=== PATIENT | female | born 1995 | race Caucasian/White ===

== ENCOUNTER → 2020-02-20 13:51 | Outpatient (BNVA) | payer MEDICARE, MEDICAID, SELFPAY | PROVIDERS: Visit Provider Emergency Medicine | DX: J02.9 Acute pharyngitis, unspecified (principal); Z68.33 Body mass index [BMI] 33.0-33.9, adult; Z71.89 Other specified counseling | CPT/HCPCS: 87071; 87880 ==

== ENCOUNTER → 2020-02-25 14:11 | Outpatient (BNVA) | payer MEDICARE, SELFPAY | PROVIDERS: Visit Provider Nurse Practitioner Family | DX: Z20.828 Contact with and (suspected) exposure to other viral communicable diseases (principal); J06.9 Acute upper respiratory infection, unspecified | CPT/HCPCS: 87635 ==

== ENCOUNTER 2020-09-08 14:23 | Emergency (ER) | payer MEDICARE, MEDICAID, SELFPAY ==
[2020-09-08 14:57] VITALS: BP 123/77; PULSE 115; RESP 18; TEMP 36.7; O2SAT 96; BMI 34.0
--- NOTE | 2020-09-08 16:42 | CTR_ITS ---
PROCEDURE INFORMATION: Exam: CT Head Without Contrast Exam date and time: 09/08/2020 4:42 PM Age: 24 years old Clinical indication: Condition or disease; Convulsions or seizures; Additional info: Seizure, trauma, left side tingling. HX. Of seizures as a child. Yesterday wave of electricity went through her and unable to move. Today feels drained, left sided tingle. Tamez/dizzy/blurred vision TECHNIQUE: Imaging protocol: Computed tomography of the head without contrast. Radiation optimization: All CT scans at this facility use at least one of these dose optimization techniques: automated exposure control; mA and/or kV adjustment per patient size (includes targeted exams where dose is matched to clinical indication); or iterative reconstruction. COMPARISON: No relevant prior studies available. RADIATION DOSE METRICS: Total DLP (mGy-cm): 880.43 FINDINGS: Brain: Normal. No hemorrhage. Unremarkable white matter. No mass effect. Cerebral ventricles: No ventriculomegaly. Paranasal sinuses: Visualized sinuses are unremarkable. No fluid levels. Mastoid air cells: Visualized mastoid air cells are well aerated. Bones/joints: Unremarkable. No acute fracture. Soft tissues: Unremarkable. CT/CT head wo con* [id number] IMPRESSION: No acute intracranial abnormality. Radiation Dose CTDIVOL = (mGy): DLP = 880.43 (mGy-cm)
--- NOTE | 2020-09-08 16:49 | W.ED.GENADLT ---
HPI - General Adult General: Chief complaint: General Medical Stated complaint: LEFT SIDE NUMB Time Seen by Provider: 09/08/20 16:37 History of Present Illness: HPI narrative: Patient is complaining of possible focal seizure last night and residual numbness/tingling today and called PCP told to come to ER patient says she has not had a seizure in about 6 years this is like her usual presentation she can feel it coming on she usually just lays down on the ground and she feels like the lights are on but nobody is home she remains awake and alert this was unwitnessed. She has never had 1 of these episodes while she was driving. She does not usually feel tired afterwards and a little bit of a headache but she has numbness and tingling and like an electrical shock wave that starts from her head down her body and it is bilateral but the left side seems a little bit worse. She denies any loss of function of bowel or bladder denies biting her tongue she denies any loss of use of her arms or legs. She is diabetic she checked her blood sugar last night and it was 200 which is a good number for her. She denies any recent illness denies vision changes. She feels her symptoms are improving but her primary wanted her to be checked out Review of Systems Narrative: General: denies fatigue, fever or chills HEENT: denies ear pain, denies nasal congestion, denies vision changes, denies sore throat Neck: denies masses or pain Resp: denies cough, denies shortness of breath, denies pleuritic pain Cardio: denies chest pain, denies edema GI: denies abdominal pain, denies N/V/D, denies black/tarry or bloody stools : denies hematuria, denies dysuria Neuro: denies headache, denies dizziness, denies motor changes but see HPI she feels like an electrical shock wave down her head Musculoskeletal: denies pain, denies swelling Skin: denies rashes Psych: denies SI or HI Endocrine: denies thyroid symptoms, denies lymphadenopathy all over ROS reviewed and patient denies PFSH ED PFSH: Social History Smoking and tobacco status: never smoked Second hand smoke exposure: No Smoking risk assessment/counseling performed?: No Alcohol intake: never Desire information about alcohol rehabilitation?: No Counseling given: No Desire information about substance/drug rehabilitation?: No Counseling given: No Adopted: No Caregiver/support person: No Lives independently: Yes Female Reproductive History: Date of last menstrual period: 08/08/20 Physical Exam Narrative: EXAM NARRATIVE: General: a/o/3, no distress, normal speech sitting upright very talkative Head: atraumatic HEENT: normal eyes, normal conjunctiva, normal hearing, normal external nose, normal mouth, mucous membranes moist Neck: FROM, trachea midline Chest: normal expansion, no gross deformities Resp: normal speech, no retractions, no accessory muscle use, CTA bilaterally Cardio: regular rate and rhythm and no murmur, no peripheral edema, normal peripheral pulses GI: soft, flat non tender, no guarding normal BS : deferred Musculoskeletal: FROM, no pain or gross deformities Neuro: a/o appropriate for age, no gross motor or sensory deficits, CN II-XII grossly intact, normal coordination, normal speech. Very polite normal functions full range of motion of all of her extremities no specific weakness Skin: no rashes Psych: cooperative, normal mood and effect Course Vital Signs: Vital signs: Vital Signs Temperature 98.1 F 09/08/20 14:57 Pulse Rate 114 H 09/08/20 16:50 Respiratory Rate 18 09/08/20 14:57 Blood Pressure 123/102 09/08/20 16:50 Pulse Oximetry 95 09/08/20 16:50 MDM - General Adult MDM Narrative: Medical decision making narrative: Patient's exam is very benign she has a lot of medications she takes she does not seem as concerned about this focal seizure and of note she never has [address] she was just concerned because of the numbness and tingling in the shockwave down her body. Will obtain a head CT make sure she has not had any type of bleed we will also check some laboratory work which I presume will most likely be normal Medical Records: Attestation: I reviewed the patient's medical records. Lab Data: Labs: Lab Results 09/08/20 09/08/20 Range/Units 16:46 16:46 WBC 11.2 H (4.0-10.0) 10^3/ uL RBC 5.13 (4.1-5.3) 10^6/u L Hgb 13.0 (11.5-15.3) g/dL Hct 42.3 (37.0-47.0) % MCV 82.5 (81-99) fL MCH 25.3 L (28.0-34.0) pg MCHC 30.7 (30.0-36.0) g/dL RDW 14.6 (12.1-15.1) % Plt Count 502 H (130-400) 10^3/c mm MPV 9.0 (7.4-10.4) fL Neut % (Auto) 58.3 % Lymph % (Auto) 33.3 % Treasure % (Auto) 5.4 % Eos % (Auto) 2.1 % Baso % (Auto) 0.5 % Neut # (Auto) 6.52 (1.8-7.7) 10^3/u L Lymph # (Auto) 3.7 (0.8-4.8) 10^3/u L Treasure # (Auto) 0.6 (0.2-0.9) 10^3/u L Eos # (Auto) 0.2 (0.0-0.8) 10^3/u L Baso # (Auto) 0.1 (0.0-0.1) 10^3/u L Nucleated RBC % (a uto) 0 % Nucleated RBCs # 0.0 /100WBC Sodium 139 (136-145) mmol/L Potassium 4.5 (3.5-5.1) mmol/L Chloride 101 (98-107) mmol/L Carbon Dioxide 24 (22-29) mmol/L Anion Gap 18.5 (5-19) BUN 12 (6-20) mg/dL Calcium 9.8 (8.5-10.5) mg/dL Magnesium 1.9 (1.7-2.3) mg/dL Total Bilirubin 0.2 (0.15-1.2) mg/dL ALT 22 (0-33) U/L Alkaline Phosphata se 73 (35-105) IU/L Creatine Kinase 86 (26-192) U/L Total Protein 7.5 (6.6-8.7) g/dL Albumin 4.3 (3.5-5.2) g/dL Globulin 3.2 (1.3-4.6) g/dL TSH 2.28 (0.27-4.20) uIU/ mL Discharge Plan Discharge Patient Disposition: Home Clinical Impression: Paresthesia Condition: Stable Prescriptions: No Action cholecalciferol (vitamin D3) 25 mcg (1,000 unit) capsule 25 mcg PO DAILY RF: 0 ropinirole 2 mg tablet 2 mg PO DAILY RF: 0 ibuprofen 800 mg tablet 800 mg PO Q8H PRNRF: 0 levonorgestrel-ethinyl estrad 0.15 mg-30 mcg (91) tablets,dose pack,3 month 1 tab PO DAILY RF: 0 diazepam 10 mg tablet 10 mg PO DAILY PRNRF: 0 brexpiprazole 2 mg tablet 2 mg PO DAILY RF: 0 vilazodone 40 mg tablet 40 mg PO DAILY RF: 0 vilazodone 10 mg tablet 10 mg PO DAILY RF: 0 lamotrigine 200 mg tablet 200 mg PO DAILY RF: 0 pantoprazole 40 mg tablet,delayed release (DR/EC) 40 mg PO DAILY RF: 0 fluticasone propionate 50 mcg/actuation spray,suspension 1 spray intranasal DAILY RF: 0 Ozempic 0.25 mg or 0.5 mg(2 mg/1.5 mL) pen injector SUBCUT RF: 0 Tresiba FlexTouch U-200 200 unit/mL (3 mL) insulin pen 20 unit SUBCUT DAILY RF: 0 insulin aspart U-100 [Novolog U-100 Insulin aspart] 100 unit/mL solution 50 unit SUBCUT TID RF: 0 levothyroxine 100 mcg capsule 100 mcg PO DAILY RF: 0 albuterol sulfate 90 mcg/actuation HFA aerosol inhaler 2 puff inhalation Q6H PRNRF: 0 atorvastatin 20 mg tablet 20 mg PO DAILY RF: 0 ferrous gluconate 324 mg (38 mg iron) tablet 324 mg PO DAILY RF: 0 Discharge Orders: Discharge ED (Routine); Ordered 09/08/20 Ordered By: Ansley Mcintyre Discharge Diet: Usual diet Discharge Activity: Limit activity as instructed Activity Restrictions/Additional Instructions: You should not be driving until you go 6 months without seizure-like activity or you are cleared by your neurologist or primary care doctor. Continue your home medications. Follow-up with your primary care physician to see if you need further work-up and/or testing to determine a cause of your symptoms Thank you for choosing [facility] for your healthcare needs today. Please realize this is an emergency room and that we are providing you with a medical screening exam and this may not be complete and all inclusive of all the testing and or work up that you may need to determine your ailment or severity of your illness. It is very important that you follow up as instructed or that you return to the Emergency Department should you have concerns or if your condition changes or worsens in any way. Coding Level of Care Code ED Manufacturers Service Representative for Rivas Dumont
[2020-09-08 16:50] VITALS: BP 123/102; PULSE 114; O2SAT 95
[2020-09-08 16:52] LABS: Basophils # 0.1 10^3/uL (0.0-0.1); Basophils % 0.5 %; Eosinophils # 0.2 10^3/uL (0.0-0.8); Eosinophils % 2.1 %; Hematocrit 42.3 % (37.0-47.0); Lymphocytes # 3.7 10^3/uL (0.8-4.8); Lymphocytes % 33.3 %; Mean Corpuscular HGB Conc 30.7 g/dL (30.0-36.0); Mean Corpuscular Hemoglobin 25.3 pg (28.0-34.0); Mean Corpuscular Volume 82.5 fL (81-99); Monocytes # 0.6 10^3/uL (0.2-0.9); Monocytes % 5.4 %; Neutrophils # 6.52 10^3/uL (1.8-7.7); Neutrophils % 58.3 %; Nucleated Red Blood Cells % 0 %; Platelet Count 502 10^3/cmm (130-400); Red Blood Count 5.13 10^6/uL (4.1-5.3); Red Cell Distribution Width 14.6 % (12.1-15.1); White Blood Count 11.2 10^3/uL (4.0-10.0)
[2020-09-08 17:28] LABS: Alanine Aminotransferase 22 U/L (0-33); Albumin Level 4.3 g/dL (3.5-5.2); Alkaline Phosphatase 73 IU/L (35-105); Anion Gap 18.5 (5-19); Aspartate Amino Transferase 42 U/L (0-32); Blood Urea Nitrogen 12 mg/dL (6-20); Calcium 9.8 mg/dL (8.5-10.5); Carbon Dioxide 24 mmol/L (22-29); Chloride 101 mmol/L (98-107); Creatine Phosphokinase 86 U/L (26-192); Globulin 3.2 g/dL (1.3-4.6); Glomerular Filtration Rate 194.5 mL/min (90-130); Glucose 239 mg/dL (65-115); Magnesium 1.9 mg/dL (1.7-2.3); Osmolality Calculated 296 mOsm/kg (285-295); Potassium 4.5 mmol/L (3.5-5.1); Sodium 139 mmol/L (136-145); Thyroid Stimulating Hormone 2.28 uIU/mL (0.27-4.20); Total Bilirubin 0.2 mg/dL (0.15-1.2); Total Protein 7.5 g/dL (6.6-8.7)
[2020-09-08 17:52] VITALS: BP 138/91; PULSE 124; RESP 16; O2SAT 96
== END 2020-09-08 17:53 | disposition home or self-care (01) ==
PROVIDERS: Emergency Provider Emergency Medicine
DX: R20.2 Paresthesia of skin (principal); Z79.4 Long term (current) use of insulin
CPT/HCPCS: 70450; 80053; 82550; 83735; 84443; 85025; 99283

== ENCOUNTER → 2020-10-14 08:32 | Outpatient (BNVA) | payer MEDICARE, MEDICAID, SELFPAY | PROVIDERS: PCP Nurse Practitioner Family; Visit Provider Nurse Practitioner Family | DX: N39.0 Urinary tract infection, site not specified (principal); R39.9 Unspecified symptoms and signs involving the genitourinary system; R81 Glycosuria; E11.65 Type 2 diabetes mellitus with hyperglycemia | CPT/HCPCS: 36416; 80053; 81003; 82962; 85025 ==

== ENCOUNTER → 2020-10-25 13:41 | Outpatient (BNVA) | payer MEDICARE, MEDICAID, SELFPAY | PROVIDERS: PCP Nurse Practitioner Family; Visit Provider Nurse Practitioner Family | DX: Z20.822 Contact with and (suspected) exposure to COVID-19 (principal) | CPT/HCPCS: 87635 ==

== ENCOUNTER → 2021-03-09 12:40 | Outpatient (BNVA) | payer MEDICARE, MEDICAID, SELFPAY | PROVIDERS: PCP Nurse Practitioner Family; Visit Provider Nurse Practitioner Family | DX: Z20.822 Contact with and (suspected) exposure to COVID-19 (principal) | CPT/HCPCS: 87426; 87635 ==

== ENCOUNTER → 2021-10-11 14:54 | Outpatient (BNVA) | payer MEDICARE, MEDICAID, SELFPAY | PROVIDERS: PCP Nurse Practitioner Family; Visit Provider Nurse Practitioner Family | DX: D64.9 Anemia, unspecified (principal); M25.50 Pain in unspecified joint | CPT/HCPCS: 80053; 85025; 85651; 86140 ==

== ENCOUNTER → 2022-05-08 13:33 | Outpatient (BNVA) | payer MEDICARE, MEDICAID, SELFPAY | PROVIDERS: PCP Nurse Practitioner Family; Visit Provider Nurse Practitioner Family | DX: E11.9 Type 2 diabetes mellitus without complications (principal) | CPT/HCPCS: 80053; 83036 ==

== ENCOUNTER 2022-08-11 13:10 | Outpatient (CLI) | payer MEDICARE, MEDICAID, SELFPAY ==
[2022-08-11 13:44] LABS: Basophils # 0.1 10^3/uL (0.0-0.1); Basophils % 0.5 %; Eosinophils # 0.4 10^3/uL (0.0-0.8); Eosinophils % 2.7 %; Hematocrit 39.9 % (37.0-47.0); Hemoglobin 12.7 g/dL (11.5-15.3); Lymphocytes # 4.3 10^3/uL (0.8-4.8); Mean Corpuscular HGB Conc 31.8 g/dL (30.0-36.0); Mean Corpuscular Hemoglobin 26.8 pg (28.0-34.0); Mean Corpuscular Volume 84.2 fl (81-99); Mean Platelet Volume 8.9 fL (7.4-10.4); Monocytes # 0.5 10^3/uL (0.2-0.9); Neutrophils # 7.82 10^3/uL (1.8-7.7); Neutrophils % 59.5 %; Nucleated Red Blood Cells % 0 %; Platelet Count 476 10^3/cmm (130-400); Red Blood Count 4.74 10^6/uL (4.1-5.3); Red Cell Distribution Width 13.5 % (12.1-15.1); White Blood Count 13.1 10^3/uL (4.0-10.0)
[2022-08-11 14:08] LABS: Cortisol Random 14.85 ug/dL (2.47-19.5)
[2022-08-11 14:22] LABS: Estmated Average Glucose 237; Hemoglobin A1C 9.9 % (4.0-6.0)
[2022-08-11 14:26] LABS: Iron 38 ug/dL (37-145)
[2022-08-11 14:29] LABS: Slide Review Slide Review Perform
[2022-08-12 22:40] LABS: Insulin ( Reference Lab Test) 27.8 uIU/mL
[2022-08-13 01:45] LABS: Dehydroepiandrosterone Sulfate 157 mcg/dL (14-349)
== END 2022-08-11 13:11 | disposition home or self-care (01) ==
PROVIDERS: PCP Nurse Practitioner Family; Visit Provider Internal Medicine
DX: E03.2 Hypothyroidism due to medicaments and other exogenous substances (principal); E55.9 Vitamin D deficiency, unspecified; E11.9 Type 2 diabetes mellitus without complications; N93.8 Other specified abnormal uterine and vaginal bleeding
CPT/HCPCS: 80053; 80061; 82043; 82306; 82533; 82627; 82670; 82728; 83036; 83525; 83540; 83550; 84146; 84403; 84439; 84443; 84481; 85025

== ENCOUNTER 2022-08-22 09:08 | Day surgery (SDC) | payer MEDICARE, MEDICAID, SELFPAY ==
[2022-08-22] VITALS (10 sets, daily range): BP systolic 122–143; BP diastolic 71–91; PULSE 79–103; RESP 14–21; TEMP 36.2–36.4; O2SAT 96–100
[2022-08-22] MEDS: sodium chloride 0.9% 1,000 ML 30 ML IV (09:33)
--- NOTE | 2022-08-22 09:35 | ANES.PREANE2 ---
Pre-Anesthetic Assessment Height/Weight: Height 1.63 m Weight 88.904 kg Temp Pulse Resp BP Pulse Ox O2 Del Method 97.1 F L 103 H 18 143/90 97 Room Air 08/22/22 09:22 08/22/22 09:22 08/22/22 09:22 08/22/22 09:22 08/22/22 09:22 08/22/22 09:22 Preop Diagnosis: AUB Operation Date: 08/22/22 11:10 Proposed Procedures p Hysteroscopy w/ Myosure(Not Applicable) - Leeann Swenson MD s [Hysetroscopy, dilation adn curettage with Myosure [id number]], [Hysetroscopy, dilation adn curettage with Myosure [id number]](Not Applicable) - Leeann Swenson MD Familial anesthetic complications: None Was Beta Daya taken within 24 hours: N/A Was Clonidine taken within 24 hours: N/A Last intake: Intake Last Liquid Date 08/21/22 Last Liquid Time 23:27 Last Solid Date 08/21/22 Last Solid Time 22:00 Social No alcohol and No tobacco occassional consumption of marijuana edibles Exam alert, oriented x 3, clear to auscultation bilaterally and regular rate & rhythm Airway Mallampati: Class III Dentition: chipped Pulmonary Asthma Metabolic Hyperlipidemia, Morbid Obesity and Thyroid Disease Musc/skel Fibromyalgia Anesthetic Plan ASA status: 3 Anesthesia: General Risk of > 500 ml blood loss (7ml/kg in children): No Medications/Allergies Home Medications Medication Instructions Recorded Confirmed Last Taken Type albuterol sulfate 90 mcg/actuation 2 puff inhalation Q6H PRN 08/09/20 08/22/22 Unknown History aerosol inhaler Shortness Of Breath diazepam 10 mg tablet 10 mg PO DAILY PRN Anxiety 08/09/20 08/22/22 Unknown History ibuprofen 800 mg tablet 800 mg PO Q8H PRN Pain 08/09/20 08/22/22 08/15/22 History lamotrigine 200 mg tablet 200 mg PO BEDTIME 08/09/20 08/22/22 08/21/22 History levothyroxine 100 mcg capsule 100 mcg PO QAM 08/09/20 08/22/22 08/21/22 History acetaminophen 500 mg tablet 1,000 mg PO PRN 09/08/20 08/22/22 07/28/22 History (Tylenol Extra Strength) norethindrone (contraceptive) 0.35 0.35 mg PO DAILY not started 09/08/20 08/22/22 08/21/22 History mg tablet yet-will start sunday semaglutide 1 mg/dose (2 mg/1.5 1 mg SUBCUT Q7D 09/08/20 08/22/22 08/21/22 History mL) subcutaneous pen injector (Ozempic) prazosin 1 mg capsule 2 mg PO BEDTIME not started taking 01/20/21 08/22/22 08/21/22 History this medication yet lurasidone 20 mg tablet (Latuda) 20 mg PO DAILY 10/11/21 08/22/22 08/21/22 History atorvastatin 20 mg tablet 20 mg PO DAILY 08/18/22 08/22/22 08/21/22 History insulin regular hum U-500 conc 500 See Rx Instructions .Route .COMPLEX 08/18/22 08/22/22 08/19/22 History unit/mL(3 mL) subcut pen (Humulin R U-500 (Conc) Insulin Kwikpen) Allergies Allergy/AdvReac Type Severity Reaction Status Date / Time Sulfa (Sulfonamide Allergy RASH Verified 08/22/22 09:20 Antibiotics) Current Medications Generic Name Dose Route Start Last Admin Trade Name Freq PRN Reason Stop Dose Admin Sodium Chloride 1,000 mls @ 30 mls/hr 08/22/22 09:15 08/22/22 09:33 Sodium Chloride 0.9% IV 08/23/22 09:14 30 mls/hr .Q24H PAIGE Administration PFSH Anesthesia Medical History Anxiety and depression Asthma Diabetes mellitus Hypothyroidism RLS (restless legs syndrome) Surgical History Hx of tonsillectomy Family History Denies family history of Colon cancer Ovarian cancer Diabetes Heart disease Hypercholesteremia Breast cancer Hypertension Uterine cancer Thyroid disease Stroke Female Reproductive History Date of last menstrual period: 08/16/22 Data Anesthesia Cardiac Studies: No Data to Display
[2022-08-22 09:39] LABS: Glucose Point of Care 344 mg/dL (70-110)
[2022-08-22] MEDS: insulin regular-human 100 units/1 mL 10 UNIT IVP (09:39)
--- NOTE | 2022-08-22 09:59 | W.PM.OPSUD ---
Surgery/Procedure H&P Update DATE OF PROCEDURE: August 22, 2022 DATE H&P PERFORMED: 08/17/22 H&P UPDATE INFORMATION: I have reviewed H&P completed within last 30 days, I have examined patient prior to procedure and No changes to prior documentation PREOP DIAGNOSIS: AUB PLANNED PROCEDURE: Operation Date: 08/22/22 11:10 Proposed Procedures p Hysteroscopy w/ Myosure(Not Applicable) - Leeann Swenson MD s [Hysetroscopy, dilation adn curettage with Myosure [id number]], [Hysetroscopy, dilation adn curettage with Myosure [id number]](Not Applicable) - Leeann Swenson MD Related Problem List Diagnoses (1) Abnormal uterine bleeding (AUB):
[2022-08-22] MEDS: ceFAZolin 2,000 MG in sodium chloride 0.9% (plus) 50 ML 100 MG IV (11:13)
--- NOTE | 2022-08-22 11:57 | PM.OP ---
Operative Report Date of procedure: August 22, 2022 Pre-op diagnosis: Preop Diagnosis AUB Post-op diagnosis: same Post-op findings: excessive tissue present Procedure done: hysteroscopy, dilation and curettage with myosure Specimens removed/disposition: endometrial curettings to pathology Surgeon: Leeann Swenson Anesthesia: General Estimated blood loss (mL): 10 IV fluids (mL): 800 Complications: pre operative blood sugar 344 no other complications Findings: 8 week sized uterus with excessive tissue Condition: stable Disposition: PACU Procedure: The patient was taken to the operating room where monitored anesthesia was administered and to be adequate. She was prepped and draped in the normal sterile fashion in the dorsal lithotomy position in [facility]. A weighted speculum was placed into the vagina and the anterior lip of the cervix grasped with a single-tooth tenaculum. The uterus was sounded to 8 cm. The cervix was dilated to 18 Georgian. The hysteroscope was advanced into the endometrial cavity. There was excessive tissue visualized. The MyoSure device was activated and the tissue was removed. Pictures were taken pre and post procedure. All instruments were removed. The patient tolerated the procedure well. Sponge lap and needle counts were correct x3. She was taken to the recovery room in stable condition.
--- NOTE | 2022-08-22 12:03 | PM.DCS ---
Discharge Providers Date of Admission: 08/22/22 Date of Discharge: August 22, 2022 Attending Provider at Admission: Dr. Swenson Attending Provider at Discharge: Leeann Swenson MD Primary Care Provider: AVELINA Galvan Diagnoses at Discharge Discharge Diagnosis (1) Abnormal uterine bleeding (AUB): Status: Acute Reason for Visit Reason for Visit: 35813 Hospital Course Hospital Course The patient was admitted for surgery. She did well postoperatively and was ready for discharge. Discharge Data Studies Completed and Pending Pending at discharge Category Date Time Status OR HCG Qualitative Urine Routine Lab 08/22/22 09:18 Ordered Pathology: Surgical [PTH] Routine Pth 08/22/22 11:52 Received Laboratory Results POC Glucose 344 mg/dL (70-110) H 08/22/22 09:30 Vitals Last Vital Signs Temp 97.1 F L 08/22/22 09:22 Pulse 103 H 08/22/22 09:22 Resp 18 08/22/22 09:22 BP 143/90 08/22/22 09:22 Pulse Ox 97 08/22/22 09:22 O2 Del Method Room Air 08/22/22 09:22 Discharge Plan Discharge Patient Disposition: Home Condition: Stable Prescriptions: Continued ibuprofen 800 mg tablet 800 mg PO Q8H PRN (Reason: Pain) diazepam 10 mg tablet 10 mg PO DAILY PRN (Reason: Anxiety) lamotrigine 200 mg tablet 200 mg PO BEDTIME levothyroxine 100 mcg capsule 100 mcg PO QAM albuterol sulfate 90 mcg/actuation HFA aerosol inhaler 2 puff inhalation Q6H PRN (Reason: Shortness Of Breath) Latuda 20 mg tablet 20 mg PO DAILY Rx Instructions: must administer with food (at least 350 calories) acetaminophen [Tylenol Extra Strength] 500 mg Tablet 1,000 mg PO PRN norethindrone (contraceptive) 0.35 mg tablet 0.35 mg PO DAILY Ozempic 1 mg/dose (2 mg/1.5 mL) pen injector 1 mg SUBCUT Q7D Rx Instructions: on fridays prazosin 1 mg capsule 2 mg PO BEDTIME atorvastatin 20 mg tablet 20 mg PO DAILY Humulin R U-500 (Conc) Kwikpen 500 unit/mL (3 mL) insulin pen See Rx Instructions .ROUTE .COMPLEX Rx Instructions: sliding scale Discharge Orders: Discharge Order (Routine); Ordered 08/22/22 Ordered By: Leeann Swenson Discharge Attestations Time Spent in Discharge Care*: less than 30 min Quality Metrics Clinical Quality Measures [ No reported AMI, CVA or VTE this stay] Coding Level of Care Code Acute Code for Chg Fwd Diagnoses Abnormal uterine bleeding (AUB) N93.9
[2022-08-22 12:30] LABS: Glucose Point of Care 172 mg/dL (70-110)
--- NOTE | 2022-08-22 13:55 | ANE.PACU2 ---
Inpatient post-anesthesia follow up: Airway intact: Yes Vital signs: Temperature 97.2 F Pulse Rate 83 Respiratory Rate 18 Blood Pressure 137/82 Pulse Oximetry 98 Oxygen Delivery Me thod Room Air Oxygen Flow Rate 5 Fraction of Inspir ed Oxygen Hydration adequate: Yes Nausea and vomiting: Yes Pain level: 1 Mental status: Baseline
== END 2022-08-22 13:08 | disposition home or self-care (01) ==
PROVIDERS: PCP Nurse Practitioner Family; Visit Provider Obstetrics & Gynecology
PROC: 0UDB8ZZ Extraction of Endometrium, Via Natural or Artificial Opening Endoscopic (ICD-10-PCS; CPT 58558; principal; 2022-08-22 11:00)
PROC: (CPT 58120; 2022-08-22 11:00)
DX: N93.9 Abnormal uterine and vaginal bleeding, unspecified (principal); E78.5 Hyperlipidemia, unspecified; J45.909 Unspecified asthma, uncomplicated; E66.01 Morbid (severe) obesity due to excess calories; Z68.33 Body mass index [BMI] 33.0-33.9, adult; E03.9 Hypothyroidism, unspecified; E11.9 Type 2 diabetes mellitus without complications; Z79.4 Long term (current) use of insulin
CPT/HCPCS: 58558; 36416; 81025; 82962; 88305; J0690; J1100; J1815; J1885; J2250; J2405; J2704; J3010; J7030

== ENCOUNTER → 2022-10-27 09:37 | Outpatient (BNVA) | payer MEDICARE, MEDICAID, SELFPAY | PROVIDERS: PCP Nurse Practitioner Family; Visit Provider Internal Medicine Endocrinology, Diabetes & Metabolism | DX: E11.9 Type 2 diabetes mellitus without complications (principal); Z79.4 Long term (current) use of insulin | CPT/HCPCS: 80053; 83036; 84439; 84443 ==

== ENCOUNTER → 2022-12-28 10:04 | Outpatient (BNVA) | payer MEDICARE, MEDICAID, SELFPAY | PROVIDERS: PCP Nurse Practitioner Family; Visit Provider Physician Assistant | DX: S83.8X2A Sprain of other specified parts of left knee, initial encounter; M25.362 Other instability, left knee; X50.9XXA Other and unspecified overexertion or strenuous movements or postures, initial encounter; Z46.89 Encounter for fitting and adjustment of other specified devices | CPT/HCPCS: 73560; 73565; 97760; 99203; L1812 ==

== ENCOUNTER 2022-12-28 15:16 | Outpatient (CLI) | payer MEDICARE, MEDICAID, SELFPAY | END 2022-12-28 15:17 | disposition home or self-care (01) | LOC: SPT 15:17 | PROVIDERS: PCP Nurse Practitioner Family; Visit Provider Physician Assistant | DX: Z46.89 Encounter for fitting and adjustment of other specified devices (principal); M25.362 Other instability, left knee; S83.8X2A Sprain of other specified parts of left knee, initial encounter; X50.9XXA Other and unspecified overexertion or strenuous movements or postures, initial encounter | CPT/HCPCS: 97760; 99203; L1812 ==

== ENCOUNTER → 2023-02-08 10:48 | Outpatient (BNVA) | payer MEDICARE, MEDICAID, SELFPAY | PROVIDERS: PCP Nurse Practitioner Family; Visit Provider Physician Assistant | DX: M25.362 Other instability, left knee (principal); S83.8X2A Sprain of other specified parts of left knee, initial encounter; X58.XXXA Exposure to other specified factors, initial encounter | CPT/HCPCS: 99213 ==

== ENCOUNTER 2023-02-28 16:24 | Outpatient (CLI) | payer MEDICARE, MEDICAID, SELFPAY ==
--- NOTE | 2023-02-28 16:45 | MR_ITS ---
WS: [id number] MRI LEFT KNEE NONCONTRAST TECHNIQUE: Axial PD, coronal PD fat sat, coronal PD, sagittal PD, and sagittal PD fat-sat images obta ined. CLINICAL INFORMATION: left knee injury COMPARISON: MRI 2011 FINDINGS: Distal quadriceps and patella tendons are intact. Normal ACL and PCL. Lateral subluxation of the bruner lla from the trochlear groove. This may be positional. Recommend correlation for patellar instability . Medial and lateral retinaculum appear intact. Prepatellar soft tissue edema. Lobulated elongated po pliteal cyst measuring 1.1 x 6.2 cm. Chronic thinning of the medial and lateral meniscus. No acute appearing meniscal tears. No bone marro w edema. Medial and lateral collateral ligaments appear intact. IMPRESSION: 1. ACL and PCL appear intact. 2. 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 Lateral subluxation of the patella from the trochlear gr oove. This may be positional. Recommend correlation for patellar instability. 3. Medial and lateral retinaculum appear intact. 4. No acute appearing meniscal tears. Chronic thinning of the medial and lateral meniscus. 5. Elongated lobulated popliteal cyst measuring 1.1 x 6.2 cm 6. No other acute findings. Outbridge grading:
== END 2023-02-28 16:25 | disposition home or self-care (01) ==
LOC: RAD 16:24
PROVIDERS: PCP Nurse Practitioner Family; Visit Provider Physician Assistant
DX: M25.362 Other instability, left knee (principal); S83.8X2A Sprain of other specified parts of left knee, initial encounter; X58.XXXA Exposure to other specified factors, initial encounter
CPT/HCPCS: 73721

== ENCOUNTER → 2023-03-23 08:01 | Outpatient (BNVA) | payer MEDICARE, MEDICAID, SELFPAY | PROVIDERS: PCP Nurse Practitioner Family; Visit Provider Physician Assistant | DX: M25.362 Other instability, left knee (principal) | CPT/HCPCS: 99213 ==

== ENCOUNTER → 2023-05-23 09:26 | Outpatient (BNVA) | payer MEDICARE, MEDICAID, SELFPAY | PROVIDERS: PCP Nurse Practitioner Family; Visit Provider Internal Medicine Endocrinology, Diabetes & Metabolism | DX: E11.9 Type 2 diabetes mellitus without complications (principal) | CPT/HCPCS: 80053; 80061; 83036; 84439; 84443 ==

== ENCOUNTER → 2023-05-24 09:21 | Outpatient (BNVA) | payer MEDICARE, MEDICAID, SELFPAY | PROVIDERS: PCP Nurse Practitioner Family; Visit Provider Internal Medicine Endocrinology, Diabetes & Metabolism | DX: E11.9 Type 2 diabetes mellitus without complications (principal) | CPT/HCPCS: 82043 ==

== ENCOUNTER → 2023-06-18 10:03 | Outpatient (BNVA) | payer MEDICARE, MEDICAID, SELFPAY | PROVIDERS: PCP Nurse Practitioner Family; Visit Provider Internal Medicine | DX: R79.9 Abnormal finding of blood chemistry, unspecified (principal); E28.2 Polycystic ovarian syndrome; N93.8 Other specified abnormal uterine and vaginal bleeding; E03.2 Hypothyroidism due to medicaments and other exogenous substances | CPT/HCPCS: 80053; 83525; 84146; 84403; 84439; 84443; 84481; 85025 ==

== ENCOUNTER → 2023-06-27 10:35 | Outpatient (BNVA) | payer MEDICARE, MEDICAID, SELFPAY | PROVIDERS: PCP Internal Medicine Endocrinology, Diabetes & Metabolism; Visit Provider Internal Medicine | DX: R79.89 Other specified abnormal findings of blood chemistry (principal) | CPT/HCPCS: 80048; 84146 ==

== ENCOUNTER → 2023-06-28 09:59 | Outpatient (BNVA) | payer MEDICARE, MEDICAID, SELFPAY | PROVIDERS: PCP Internal Medicine Endocrinology, Diabetes & Metabolism; Visit Provider Internal Medicine | DX: R79.89 Other specified abnormal findings of blood chemistry (principal) | CPT/HCPCS: 82436; 84133; 84300 ==

== ENCOUNTER → 2023-07-05 13:17 | Outpatient (BNVA) | payer MEDICARE, MEDICAID, SELFPAY | PROVIDERS: PCP Internal Medicine Endocrinology, Diabetes & Metabolism; Visit Provider Nurse Practitioner Women's Health | DX: N93.9 Abnormal uterine and vaginal bleeding, unspecified (principal) | CPT/HCPCS: 76830 ==

== ENCOUNTER → 2023-07-24 10:46 | Outpatient (BNVA) | payer MEDICARE, MEDICAID, SELFPAY | PROVIDERS: PCP Internal Medicine Endocrinology, Diabetes & Metabolism; Visit Provider Family Medicine | DX: R11.10 Vomiting, unspecified (principal) | CPT/HCPCS: 81000; 81025 ==

== ENCOUNTER 2023-08-01 09:50 | Outpatient (CLI) | payer MEDICARE, MEDICAID, SELFPAY ==
[2023-08-01 10:59] LABS: INR 0.92 (0.8-1.2)
[2023-08-01 11:00] LABS: Partial Thromboplastin Time 22.7 SECONDS (23.9-36.7)
[2023-08-01 11:06] LABS: Ferritin 293 ng/mL (15-150); Iron 55 ug/dL (37-145); Magnesium 1.7 mg/dL (1.7-2.3); Percent Saturation 17.9 % (20-50); Total Iron Binding Capacity 306 mcg/dl; Unsaturated Iron Binding 251 ug/dL (112-347)
[2023-08-01 11:19] LABS: Vitamin B12 508 pg/mL (232-1245)
[2023-08-01 11:20] LABS: Folate Level 6.8 ng/mL (4.8-37.3)
[2023-08-06 00:14] LABS: Vitamin K 931 pg/mL (130-1500)
== END 2023-08-01 09:51 | disposition home or self-care (01) ==
PROVIDERS: PCP Internal Medicine Endocrinology, Diabetes & Metabolism; Visit Provider Internal Medicine
DX: N92.0 Excessive and frequent menstruation with regular cycle (principal); R79.1 Abnormal coagulation profile
CPT/HCPCS: 36415; 82607; 82728; 82746; 83540; 83550; 83735; 84597; 85610; 85730

== ENCOUNTER 2023-08-31 23:34 | Emergency (ER) | payer MEDICARE, MEDICAID, SELFPAY ==
[2023-08-31 23:41] VITALS: BP 125/77; PULSE 90; RESP 20; TEMP 36.6; O2SAT 98
--- NOTE | 2023-08-31 23:43 | ECG_ITS ---
[facility] Test Date: 2023-08-31 Pat Name: Briseyda Casarez Department: Room: Gender: Female Fisher Hand Line: : 1995 Requested By: Umer Almeida Order Number: [id number] Jose MD: Kelby Rebollar M.D. Measurements Intervals Dell Rate: 84 P: 42 PA: 152 QRS: -20 QRSD: 86 T: 16 QT: 365 QTc: 431 Interpretive Statements SINUS RHYTHM LOW QRS VOLTAGE IN PRECORDIAL LEADS [QRS DEFLECTION < 1.0 mV IN CHEST LEADS] No previous ECG available for comparison Electronically Signed On 09-02-2023 20:13:45 CDT by Kelby Rebollar M.D. [id number]
--- NOTE | 2023-08-31 23:45 | XRR_ITS ---
PROCEDURE INFORMATION: Exam: XR Chest Exam date and time: 08/31/2023 11:48 PM Age: 27 years old Clinical indication: Pain; Chest pressure; Patient HX: C/O palpitations with tachycardia; Additional info: Cp TECHNIQUE: Imaging protocol: Radiologic exam of the chest. Views: 1 view. COMPARISON: No relevant prior studies available. FINDINGS: Lungs: Unremarkable. No consolidation. Pleural spaces: Unremarkable. No pleural effusion. No pneumothorax. Heart/Mediastinum: Unremarkable. No cardiomegaly. Bones/joints: Unremarkable. XR/XR chest 1V portable [id number] IMPRESSION: No acute findings.
--- NOTE | 2023-09-01 00:13 | ED_ITS ---
HPI - Arrhythmia/Palpitations 2 General: Chief Complaint: Arrhythmia/Palpitations Stated Complaint: CP/Palpitations Time Seen by Provider: 08/31/23 23:40 Source: patient Mode of arrival: ambulatory Limitations: no limitations History of Present Illness: 19-year-old female states that she like her heart was racing today she started having a burning sensation in her chest and admit her acute concern. States her symptoms have since improved she denies any severe pain currently she had some numbness in her hands as well she denies any shortness of breath currently denies any cough or fever. Denies any nausea or vomiting Associated symptoms: Deny nausea or vomiting Review of Systems 2 Const: Denies: fever(s), chills, body aches or change in appetite Eyes: Denies: blurry vision or eye discomfort ENMT: Denies: throat pain or dental pain Card: Reports: chest pain and palpitations Resp: Denies: dyspnea GI: Denies: abdominal pain, nausea, vomiting or diarrhea Musc: Denies: neck pain or back pain Skin/Breast: Denies: rash Neuro: Denies: headache(s) PFSH ED 2 PFSH: Medical History RLS (restless legs syndrome) Anxiety and depression Asthma Hypothyroidism Diabetes mellitus Surgical History Hx of tonsillectomy Family History Denies family history of Colon cancer Ovarian cancer Diabetes Heart disease Hypercholesteremia Breast cancer Hypertension Uterine cancer Thyroid disease Stroke Physical Exam 2 Const: COMMON NORMALS: no acute distress, patient oriented x3 and healthy appearing HENMT: COMMON NORMALS: normocephalic and atraumatic HEAD & SCALP: n ormocephalic and atraumatic Eye: COMMON NORMALS: Equal, round and reactive pupils present and EOMs intact bilaterally PUPIL: Yes Equal, round and reactive pupils present Neck/C-Spine: COMMON NORMALS: full ROM and supple Chest: COMMONS NORMALS: normal inspection of the chest and normal palpation of entire chest wall Resp: COMMON NORMALS: normal respiratory effort, No retractions, No use of accessory muscles and clear to auscultation bilaterally AUSCULTATION: clear to auscultation bilaterally Cardio: COMMON NORMALS: regular rate, regular rhythm and No murmurs present (Cardio) RATE: regular rate RHYTHM: regular rhythm GI: COMMON NORMALS: Normal to inspection, nondistended, normoactive bowel sounds present, Soft to palpation, non-tender and no masses PALPATION: Yes Soft to palpation Extremity: COMMON NORMALS: normal to inspection and full ROM Neuro: COMMON NORMALS: patient oriented x3, moves all extremities and no focal motor deficits Psych: COMMON NORMALS: mental status grossly normal, Normal thought process present and cooperative THOUGHT PROCESS: Normal thought process present Skin: COMMON NORMALS: no rashes or lesions noted and no wounds GENERAL SKIN EXAM: no rashes or lesions noted Course 2 Vital Signs: Vital signs: Vital Signs Temperature 97.8 F 08/31/23 23:41 Pulse Rate 83 09/01/23 00:17 Respiratory Rate 21 H 09/01/23 00:17 Blood Pressure 125/77 09/01/23 00:17 Pulse Oximetry 95 09/01/23 00:17 Oxygen Delivery Me thod Room Air 09/01/23 00:17 MDM - Arrhythmia/Palpitations Medical Decision Making Patient presents here with palpitations and some chest pain she has been well- appearing here she is felt improved here is likely anxiety her initial troponin is negative she has no signs of ACS no signs of PE she stable for discharge follow-up with PCP return if worsening she understands agrees plan Medical Records I reviewed the patient's medical records. Lab Data I reviewed the patient's lab results. 09/01/23 00:24 09/01/23 00:13 Radiology Impressions Chest X-Ray 08/31/23 23:45 IMPRESSION: No acute findings. Laboratory Results WBC 13.46 10^3/uL (3.29-11.43) H 09/01/23 00:24 Corrected WBC Cancelled 08/31/23 00:13 RBC 4.47 10^6/uL (3.85-5.65) 09/01/23 00:24 Hgb 11.90 g/dL (11.27-16.99) 09/01/23 00:24 Hct 37.5 % (36-47) 09/01/23 00:24 MCV 83.9 fl (85-98) L 09/01/23 00:24 MCH 26.6 pg (27-33) L 09/01/23 00:24 MCHC 31.7 g/dL (30-55) 09/01/23 00:24 RDW 13.5 % (12.1-15.1) 09/01/23 00:24 Plt Count 453 10^3/cmm (157-399) H 09/01/23 00:24 MPV 8.9 fL (7.4-10.4) 09/01/23 00:24 Gran % Cancelled 08/31/23 00:13 Neut % (Auto) 75.1 % 09/01/23 00:24 Lymph % (Auto) 18.4 % 09/01/23 00:24 [place] % (Auto) 3.3 % 09/01/23 00:24 Eos % (Auto) 2.7 % 09/01/23 00:24 Baso % (Auto) 0.3 % 09/01/23 00:24 Neut # (Auto) 10.12 10^3/uL (1.8-7.7) H 09/01/23 00:24 Lymph # (Auto) 2.5 10^3/uL (0.8-4.8) 09/01/23 00:24 [place] # (Auto) 0.4 10^3/uL (0.2-0.9) 09/01/23 00:24 Eos # (Auto) 0.4 10^3/uL (0.0-0.8) 09/01/23 00:24 Baso # (Auto) 0.0 10^3/uL (0.0-0.1) 09/01/23 00:24 Absolute Gran (auto) Cancelled 08/31/23 00:13 Nucleated RBC % (auto) 0 % 09/01/23 00:24 Nucleated RBCs # 0.0 /100WBC 09/01/23 00:24 D-Dimer 0.39 ug/mLFEU (0-0.59) 09/01/23 00:13 Sodium 141 mmol/L (136-145) 09/01/23 00:13 Potassium 4.1 mmol/L (3.5-5.1) 09/01/23 00:13 Chloride 108 mmol/L (98-107) H 09/01/23 00:13 Carbon Dioxide 22 mmol/L (22-29) 09/01/23 00:13 Anion Gap 15.1 (5-19) 09/01/23 00:13 BUN 9 mg/dL (6-20) 09/01/23 00:13 Creatinine 0.7 mg/dL (0.5-0.9) 09/01/23 00:13 GFR Calculation 99.6 mL/min (90-130) 09/01/23 00:13 Glucose 213 mg/dL (65-115) H 09/01/23 00:13 Calculated Osmolality 297 mOsm/kg (285-295) H 09/01/23 00:13 Calcium 8.8 mg/dL (8.5-10.5) 09/01/23 00:13 Total Bilirubin 0.2 mg/dL (0.15-1.2) 09/01/23 00:13 AST 19 U/L (0-32) 09/01/23 00:13 ALT 24 U/L (0-33) 09/01/23 00:13 Alkaline Phosphatase 75 U/L (35-105) 09/01/23 00:13 Troponin T Baseline 9 ng/L (0-10) 09/01/23 00:13 Total Protein 7.0 g/dL (6.6-8.7) 09/01/23 00:13 Albumin 4.1 g/dL (3.5-5.2) 09/01/23 00:13 Globulin 2.9 g/dL (1.3-4.6) 09/01/23 00:13 Lipase 60 U/L (13-60) 09/01/23 00:13 All radiology interpretation(s) finalized by discharge EKG Data EKG 1: I personally reviewed and interpreted this EKG as follows: EKG interpretation date: 09/01/23 EKG interpretation time: 23:43 Interpretation: nsr hr [address] or t wave abnormalities qrs 86 qtc 405 Other EKG comments: Chest X-Ray 08/31/23 23:45 IMPRESSION: No acute findings. EKG 2: I personally reviewed and interpreted this EKG as follows: EKG interpretation date: 09/01/23 EKG interpretation time: 00:53 Interpretation: nsr hr [address] or t wave abnormalities qrs 87 qtc 416 Other EKG comments: Chest X-Ray 08/31/23 23:45 IMPRESSION: No acute findings. Discharge Plan Discharge Patient Disposition: Home Clinical Impression: Palpitations, Chest pain Condition: Stable Prescriptions: No Action diazepam 10 mg tablet 10 mg PO DAILY PRN (Reason: Anxiety) lamotrigine 200 mg tablet 200 mg PO BEDTIME levothyroxine 100 mcg capsule 100 mcg PO QAM albuterol sulfate 90 mcg/actuation HFA aerosol inhaler 2 puff inhalation Q6H PRN (Reason: Shortness Of Breath) baclofen 10 mg tablet 10 mg PO DAILY Rx Instructions: 1/2 tablet daily Classic 28 mg iron- 800 mcg tablet 1 tab PO DAILY 30 Days Qty: 30 0RF doxylamine-pyridoxine (vit B6) [Diclegis] 10-10 mg tablet,delayed release (DR/EC) 1 tab PO BID PRN (Reason: nausea and vomiting in ) 15 Days Qty: 30 0RF (DME) HINGED KNEE BRACE See Rx Instructions .Route .MEDSUPPLY Qty: 1 0RF Rx Instructions: As directed cariprazine 1.5 mg capsule 1.5 mg PO DAILY acetaminophen [Tylenol Extra Strength] 500 mg Tablet 1,000 mg PO PRN Ozempic 1 mg/dose (2 mg/1.5 mL) pen injector 1 mg SUBCUT Q7D Rx Instructions: on fridays prazosin 1 mg capsule 2 mg PO BEDTIME atorvastatin 20 mg tablet 20 mg PO DAILY Humulin R U-500 (Conc) Kwikpen 500 unit/mL (3 mL) insulin pen See Rx Instructions .ROUTE .COMPLEX Rx Instructions: sliding scale Discharge Orders: Discharge ED (Routine); Ordered 09/01/23 Ordered By: Umer Almeida Referrals: Mary Swartz MD [Primary Care Provider] - Discharge Diet: Advance as tolerated Discharge Activity: Resume usual activity Patient Instructions: Chest Pain (ED) Coding Level of Care Code ED Parachute Marker for Rivas Dumont
[2023-09-01 00:17] VITALS: BP 125/77; PULSE 83; RESP 21; O2SAT 95
[2023-09-01 00:39] LABS: Troponin(5th) Baseline 9 ng/L (0-10)
[2023-09-01 00:41] LABS: D Dimer 0.39 ug/mLFEU (0-0.59)
[2023-09-01 00:42] LABS: Alanine Aminotransferase 24 U/L (0-33); Albumin Level 4.1 g/dL (3.5-5.2); Alkaline Phosphatase 75 U/L (35-105); Anion Gap 15.1 (5-19); Aspartate Amino Transferase 19 U/L (0-32); Blood Urea Nitrogen 9 mg/dL (6-20); Calcium 8.8 mg/dL (8.5-10.5); Carbon Dioxide 22 mmol/L (22-29); Chloride 108 mmol/L (98-107); Globulin 2.9 g/dL (1.3-4.6); Glomerular Filtration Rate 99.6 mL/min (90-130); Glucose 213 mg/dL (65-115); Lipase 60 U/L (13-60); Osmolality Calculated 297 mOsm/kg (285-295); Potassium 4.1 mmol/L (3.5-5.1); Sodium 141 mmol/L (136-145); Total Bilirubin 0.2 mg/dL (0.15-1.2)
[2023-09-01 00:44] LABS: Basophils % 0.3 %; Eosinophils # 0.4 10^3/uL (0.0-0.8); Eosinophils % 2.7 %; Hematocrit 37.5 % (36-47); Lymphocytes # 2.5 10^3/uL (0.8-4.8); Lymphocytes % 18.4 %; Mean Corpuscular HGB Conc 31.7 g/dL (30-55); Mean Corpuscular Hemoglobin 26.6 pg (27-33); Mean Corpuscular Volume 83.9 fl (85-98); Mean Platelet Volume 8.9 fL (7.4-10.4); Monocytes # 0.4 10^3/uL (0.2-0.9); Monocytes % 3.3 %; Neutrophils # 10.12 10^3/uL (1.8-7.7); Neutrophils % 75.1 %; Nucleated Red Blood Cells % 0 %; Platelet Count 453 10^3/cmm (157-399); Red Blood Count 4.47 10^6/uL (3.85-5.65); Red Cell Distribution Width 13.5 % (12.1-15.1); White Blood Count 13.46 10^3/uL (3.29-11.43)
[2023-09-01 01:10] VITALS: BP 117/74; PULSE 78; RESP 18; O2SAT 97
== END 2023-09-01 01:09 | disposition home or self-care (01) ==
PROVIDERS: Emergency Provider Emergency Medicine; PCP Internal Medicine Endocrinology, Diabetes & Metabolism
DX: R07.9 Chest pain, unspecified (principal); R00.2 Palpitations; Z79.85 Long-term (current) use of injectable non-insulin antidiabetic drugs; Z79.4 Long term (current) use of insulin; E11.9 Type 2 diabetes mellitus without complications
CPT/HCPCS: 71045; 80053; 83690; 84484; 85025; 85378; 93005; 99285

== ENCOUNTER → 2023-09-24 15:26 | Outpatient (BNVA) | payer MEDICARE, MEDICAID, SELFPAY | PROVIDERS: PCP Internal Medicine Endocrinology, Diabetes & Metabolism; Visit Provider Nurse Practitioner | DX: E11.65 Type 2 diabetes mellitus with hyperglycemia (principal); Z79.4 Long term (current) use of insulin | CPT/HCPCS: 80053; 80061; 83036; 84443; 85025 ==

== ENCOUNTER → 2023-10-04 14:50 | Outpatient (BNVA) | payer MEDICARE, MEDICAID, SELFPAY | PROVIDERS: PCP Internal Medicine Endocrinology, Diabetes & Metabolism; Visit Provider Nurse Practitioner Women's Health | DX: Z01.419 Encounter for gynecological examination (general) (routine) without abnormal findings (principal); R00.0 Tachycardia, unspecified | CPT/HCPCS: 87624 ==

== ENCOUNTER → 2023-11-30 09:59 | Outpatient (BNVA) | payer MEDICARE, MEDICAID, SELFPAY | PROVIDERS: PCP Internal Medicine Endocrinology, Diabetes & Metabolism; Referring Provider Nurse Practitioner Women's Health; Visit Provider Internal Medicine Cardiovascular Disease | DX: R07.2 Precordial pain (principal); R00.0 Tachycardia, unspecified; R55 Syncope and collapse; F17.200 Nicotine dependence, unspecified, uncomplicated | CPT/HCPCS: 99204 ==

== ENCOUNTER → 2023-12-04 11:32 | Outpatient (BNVA) | payer MEDICARE, MEDICAID, SELFPAY | PROVIDERS: PCP Internal Medicine Endocrinology, Diabetes & Metabolism; Visit Provider Nurse Practitioner | DX: R19.7 Diarrhea, unspecified (principal) | CPT/HCPCS: 80053; 85025 ==

== ENCOUNTER 2023-12-05 06:00 | Outpatient (CLI) | payer MEDICARE, MEDICAID, SELFPAY | END 2023-12-05 06:01 | disposition home or self-care (01) | LOC: CDL 12-11 06:46 | PROVIDERS: PCP Nurse Practitioner; Visit Provider Internal Medicine Cardiovascular Disease | DX: R19.7 Diarrhea, unspecified (principal) | CPT/HCPCS: 83630; 87045; 87427; 87449 ==

== ENCOUNTER 2023-12-21 11:16 | Outpatient (CLI) | payer MEDICARE, MEDICAID, SELFPAY ==
[2023-12-21 11:57] VITALS: BMI 28.5
--- NOTE | 2023-12-21 12:00 | ECG_ITS ---
[facility] Test Date: 2023-12-21 Pat Name: Briseyda Casarez Department: Room: Gender: Female Analog Design Engineer: : [id number] Requested By: Adamaris Seth Order Number: [id number] Jose MD: Jens Feliciano M.D. Interpretive Statements TREADMILL EXERCISE STRESS TEST EXERCISE DATA: The patient was exercised by Deonte protocol. Baseline heart rate was 99 beats per minute. Baseline blood pressure was 114/69 millimeters of mercury. Maximal predicted heart rate was 192 beats per minute. Maximum heart rate achieved was 184 which was 95% of the maximum predicted heart rate. Maximum blood pressure was 161/61 millimeters of mercury. Total exercise time was 10 minutes and 8 seconds. Maximum METs achieved was 13.5. The reason for ending the test was completion of protocol. The patient complained of shortness of breath during the stress test, which then resolved at the end of the test. ELECTROCARDIOGRAM: BASELINE: Showed sinus rhythm, normal axis, no significant ST-T changes at the baseline noted. [] EXERCISE: At the peak exercise level, [] No significant ST-T changes suggestive of ischemia noted. [] RECOVERY: During the recovery period, heart rate dropped appropriately. No significant ST-T changes in the recovery suggestive of ischemia noted. [] CONCLUSION: 1. Exercise capacity is excellent 2. Heart rate response was appropriate 3. Blood pressure response was appropriate 4. Symptoms not suggestive of ischemia. 5. Exercise stress test does not show evidence of ischemia. Electronically Signed On 12-22-2023 18:23:53 CDT by Jens Feliciano M.D. [id number]
[2023-12-21 12:57] VITALS: BP 116/87; PULSE 99
== END 2023-12-21 11:17 | disposition home or self-care (01) ==
PROVIDERS: PCP Nurse Practitioner; Visit Provider Internal Medicine Cardiovascular Disease
DX: I49.8 Other specified cardiac arrhythmias (principal); R07.9 Chest pain, unspecified
CPT/HCPCS: 93017

== ENCOUNTER 2023-12-23 06:22 | Emergency (ER) | payer MEDICARE, MEDICAID, SELFPAY ==
[2023-12-23] VITALS (7 sets, daily range): BP systolic 101–121; BP diastolic 65–70; PULSE 75–93; RESP 16–18; TEMP 36.3; O2SAT 96–100; BMI 28.6
[2023-12-23 07:02] LABS: Basophils # 0.1 10^3/uL (0.0-0.1); Basophils % 0.4 %; Eosinophils # 0.7 10^3/uL (0.0-0.8); Eosinophils % 5.5 %; Hematocrit 41.4 % (36-47); Lymphocytes # 3.6 10^3/uL (0.8-4.8); Mean Corpuscular HGB Conc 30.9 g/dL (30-55); Mean Corpuscular Hemoglobin 26.3 pg (27-33); Mean Corpuscular Volume 85.2 fl (85-98); Mean Platelet Volume 8.9 fL (7.4-10.4); Monocytes # 0.6 10^3/uL (0.2-0.9); Monocytes % 4.1 %; Neutrophils # 8.34 10^3/uL (1.8-7.7); Neutrophils % 62.8 %; Nucleated Red Blood Cells % 0 %; Platelet Count 414 10^3/cmm (157-399); Red Blood Count 4.86 10^6/uL (3.85-5.65); Red Cell Distribution Width 14.3 % (12.1-15.1); White Blood Count 13.28 10^3/uL (3.29-11.43)
[2023-12-23] MEDS: ondansetron 2 mg/ML SDV 2 mL 4 MG IVP (07:16)
[2023-12-23] MEDS: morphine 4 mg/mL SDV 1 mL IVP ×2 (07:16→11:31)
[2023-12-23 07:19] LABS: Alanine Aminotransferase 26 U/L (0-33); Albumin Level 4.2 g/dL (3.5-5.2); Alkaline Phosphatase 92 U/L (35-105); Anion Gap 14.9 (5-19); Aspartate Amino Transferase 19 U/L (0-32); Blood Urea Nitrogen 11 mg/dL (6-20); Calcium 9.2 mg/dL (8.5-10.5); Carbon Dioxide 20 mmol/L (22-29); Chloride 104 mmol/L (98-107); Creatinine Clr Calc Pharmacy 139.0978; Globulin 3.6 g/dL (1.3-4.6); Glucose 209 mg/dL (65-115); Osmolality Calculated 286 mOsm/kg (285-295); Potassium 3.9 mmol/L (3.5-5.1); Sodium 135 mmol/L (136-145); Total Bilirubin 0.2 mg/dL (0.15-1.2); Total Protein 7.8 g/dL (6.6-8.7)
[2023-12-23 08:07] LABS: Bilirubin Urine Negative (Negative); Blood Urine Negative (Negative); Glucose Urine UA Negative (Normal); Ketones Urine Negative (Negative); Leukocyte Esterase Urine Negative (Negative); Nitrate Urine Negative (Negative); Protein Urine 2+ (Negative); Specific Gravity, Urine 1.028 (1.005-1.030); Urine Appearance Clear (CLEAR); Urine Color Dark Yellow (Yellow)
[2023-12-23 08:10] LABS: Add Urine Microscopic? YES; Bacteria Urine 1+ /hpf; Hyaline Casts Urine 23.14 /lpf; WBC Urine 0-5 /hpf (0-5)
[2023-12-23 08:13] LABS: HCG Qualitative Urine. Negative (Negative)
[2023-12-23 08:32] LABS: Amorphous Sediment Urine 1+ /hpf; Mucus Urine 3+ /hpf; UA Slide Review UA Slide Review Perf
--- NOTE | 2023-12-23 08:36 | CTR_ITS ---
PROCEDURE INFORMATION: Exam: CT Abdomen And Pelvis Without Contrast Exam date and time: 12/23/2023 8:44 AM Age: 27 years old Clinical indication: Abdominal pain; Flank; Right; Additional info: Flank pain TECHNIQUE: Imaging protocol: Computed tomography of the abdomen and pelvis without contrast. Radiation optimization: All CT scans at this facility use at least one of these dose optimization techniques: automated exposure control; mA and/or kV adjustment per patient size (includes targeted exams where dose is matched to clinical indication); or iterative reconstruction. COMPARISON: US transvaginal [id number] 07/05/2023 1:22 PM RADIATION DOSE METRICS: Total DLP (mGy-cm): 623.83 FINDINGS: Lungs: Lung bases are clear as visualized. Liver: Normal. No mass. Gallbladder and biliary ducts: Normal. No calcified stones. No ductal dilation. Pancreas: Normal. No ductal dilation. Spleen: Normal. No splenomegaly. Adrenal glands: Normal. No mass. Kidneys and ureters: Normal. No hydronephrosis. Stomach and bowel: Unremarkable. No obstruction. No mucosal thickening. Appendix: The appendix is not definitely identified. Intraperitoneal space: Unremarkable. No free air. No significant fluid collection. Vasculature: Unremarkable. No abdominal aortic aneurysm. Lymph nodes: Unremarkable. No enlarged lymph nodes. Urinary bladder: Unremarkable as visualized. Reproductive: Unremarkable as visualized. Bones/joints: Unremarkable. No acute fracture. Soft tissues: There is a small fat filled periumbilical hernia. CT/CT kidney stone [id number] IMPRESSION: 1. No acute findings. Please see above comments for additional details.
--- NOTE | 2023-12-23 10:42 | USR_ITS ---
PROCEDURE INFORMATION: Exam: US Pelvis, Transvaginal, Non-Obstetric Exam date and time: 12/23/2023 11:41 AM Age: 27 years old Clinical indication: Pelvic pain; Prior surgery; Surgery date: 6+ months; Surgery type: HX of d&c due to heavy periods per patient; Additional info: Rlq pain - rule out torsion TECHNIQUE: Imaging protocol: Real-time transvaginal pelvic (non-obstetric) ultrasound with image documentation. Transvaginal imaging was used for better evaluation of the endometrium, adnexa, and/or cervix. COMPARISON: US transvaginal [id number] 07/05/2023 1:22 PM FINDINGS: Uterus: Uterus measures 3.7 x 2.7 x 7.1 cm. Thickened endometrium with an echogenic round foci measuring 1.1 centimeters with internal vascularity. 1.4 x 0.8 centimeters endometrial hypoechoic structure at the posterior cervix-body of the uterus (time stamp 11:40:30 series 1, image 20) Right ovary/adnexa: Right ovary measures 2.2 x 2.2 x 1.7 centimeters. Left ovary/adnexa: Left ovary measures 2.5 x 2.1 x 1.4 centimeters. Urinary bladder: Debris in the bladder. Intraperitoneal space: No free fluid. US/US transvaginal [id number] IMPRESSION: 1. Thickened endometrium with an echogenic round foci measuring 1.1 centimeters with internal vascularity. Differential diagnosis includes retained products of conception versus endometrial polyp. 2. Hypoechoic region along the posterior endocervical canal. Further evaluation with pelvic MRI may be obtained. 3. Echogenic debris within the bladder. 4. Preserved bilateral intra-ovarian blood flow.
--- NOTE | 2023-12-23 12:06 | W.ED.ABDPA2 ---
HPI - Abdominal Pain General: Chief Complaint: Abdominal Pain Stated Complaint: abd pains Time Seen by Provider: 12/23/23 06:38 History of Present Illness: This patient is a 27-year-old presenting with right sided flank pain and bilateral lower quadrant pain. This began suddenly at 5 AM. She also had severe diarrhea and lower abdominal cramping. She does think that it is possible she has food poisoning from a breakfast burrito she ate yesterday. She reports a normal period 1 week ago. She has not had any abdominal surgeries. She has never had symptoms like this before. There is a family history of kidney stones but she has not personally had a kidney stone. She denies dysuria but says that when she urinates it does make her lower abdomen hurt. No fever. On further questioning she said that her diarrhea is not unusual for her and that she has diarrhea all the time . She denies any other significant medical history however she is on semaglutide and insulin, albuterol, atorvastatin, baclofen. She is also on control pills. Related Data Date of Last Menstrual Period: 12/16/23 Home Medications Medication Instructions Recorded Confirmed albuterol sulfate 90 mcg/actuation 2 puff inhalation Q6H PRN 08/09/20 12/04/23 aerosol inhaler Shortness Of Breath diazepam 10 mg tablet 10 mg PO DAILY PRN Anxiety 08/09/20 12/04/23 lamotrigine 200 mg tablet 200 mg PO BEDTIME 08/09/20 12/04/23 levothyroxine 100 mcg capsule 100 mcg PO QAM 08/09/20 12/04/23 acetaminophen 500 mg tablet 1,000 mg PO PRN 09/08/20 12/04/23 (Tylenol Extra Strength) semaglutide 1 mg/dose (2 mg/1.5 1 mg SUBCUT Q7D 09/08/20 12/04/23 mL) subcutaneous pen injector (Ozempic) prazosin 1 mg capsule 2 mg PO BEDTIME not started taking 01/20/21 12/04/23 this medication yet atorvastatin 20 mg tablet 20 mg PO DAILY 08/18/22 12/04/23 baclofen 10 mg tablet 10 mg PO DAILY 11/24/22 12/04/23 cariprazine 1.5 mg capsule 1.5 mg PO DAILY 03/29/23 12/04/23 clindamycin phosphate 1 % topical 1 applic topical DAILY PRN 09/24/23 12/04/23 gel, once daily (Clindagel) ibuprofen 800 mg tablet 800 mg PO PRN 09/24/23 12/04/23 nitrofurantoin macrocrystal 50 mg 50 mg PO PRN 09/24/23 12/04/23 capsule nystatin 100,000 unit/gram topical 1 applic topical BID PRN 09/24/23 12/04/23 ointment insulin glargine 100 unit/mL (3 25 unit SUBCUT BEDTIME 11/30/23 12/04/23 mL) subcutaneous pen (Lantus Solostar U-100 Insulin) Previous Rx's Medication Instructions Recorded HINGED KNEE BRACE #1 ea 12/28/22 norethindrone (contraceptive) 0.35 0.35 mg PO DAILY #84 tabs 09/10/23 mg tablet Allergies Allergy/AdvReac Type Severity Reaction Status Date / Time Sulfa (Sulfonamide Allergy RASH Verified 12/21/23 12:58 Antibiotics) PFSH ED PFSH: Medical History (Updated 12/23/23 @ 13:41 by Lashon Rousseau MD) IBS (irritable bowel syndrome) Anxiety and depression Hypothyroidism Type 2 diabetes mellitus with hyperglycemia, with long-term current use of insulin RLS (restless legs syndrome) Asthma Surgical History Hx of tonsillectomy Family History Denies family history of Colon cancer Ovarian cancer Diabetes Heart disease Hypercholesteremia Breast cancer Hypertension Uterine cancer Thyroid disease Stroke Social History Smoking and tobacco/nicotine status: current every day tobacco/nicotine user (thc vaping) e-cigarettes E-cig/vape details: THC vape Alcohol intake: never Substance/Drug Use: unknown Adopted: No Caregiver/support person: No Lives independently: Yes Household members: significant other Housing: House Marital status: Single Number of children: 0 service: No Current occupational status: disabled Pets and animals: Yes Pets & animals: dog(s) Do you think of yourself as: Straight/Heterosexual Current gender identity: Female Female Reproductive History: Date of last menstrual period: 12/16/23 Physical Exam Const: COMMON NORMALS: no acute distress, patient oriented x3, no limitations and alert GENERAL APPEARANCE: cooperative and comfortable HENMT: HEAD & SCALP: normal to inspection FACE & SINUS: normal facial exam Eye: GENERAL EYE: appearance normal, both eyes and all related structures Neck/C-Spine: COMMON NORMALS: supple, no meningeal signs and no JVD Chest: COMMONS NORMALS: normal inspection of the chest Resp: COMMON NORMALS: normal respiratory effort, No use of accessory muscles and clear to auscultation bilaterally AUSCULTATION: clear to auscultation bilaterally Cardio: COMMON NORMALS: no JVD, regular rate, regular rhythm and No murmurs present (Cardio) RATE: regular rate RHYTHM: regular rhythm GI: INSPECTION: Yes normal to inspection AUSCULTATION: Yes normoactive bowel sounds OTHER: Tender in the suprapubic region. No rebound or tenderness to percussion. Positive right CVA tenderness initially. Back/Pelvis: COMMON NORMALS: thoracic and lumbar spine normal to inspection Extremity: COMMON NORMALS: normal to inspection Neuro: COMMON NORMALS: patient oriented x3, moves all extremities, no focal motor deficits and no sensory deficits noted SENSORIUM/ORIENTATION: Yes alert MENINGEAL SIGNS: Yes no meningeal signs Psych: COMMON NORMALS: mental status grossly normal, cooperative and normal affect Skin: COMMON NORMALS: no rashes or lesions noted and turgor normal GENERAL SKIN EXAM: no rashes or lesions noted and turgor normal Course Vital Signs: Vital signs: Vital Signs Temperature 97.4 F L 12/23/23 06:31 Pulse Rate 93 12/23/23 12:41 Respiratory Rate 18 12/23/23 11:31 Blood Pressure 121/69 12/23/23 12:41 Pulse Oximetry 97 12/23/23 12:41 Oxygen Delivery Me thod Room Air 12/23/23 12:41 MDM - Abdominal Pain Medical Decision Making Patient presents with right flank pain. She also is tender over the suprapubic region. She has had some urinary symptoms, diarrhea, severe cramping abdominal pain. She describes this as a sharp pain that just darted this morning. She has no fever. Vital signs are good. test was negative. UA was negative for infection. CT with no contrast was negative for kidney stones and there were no other abnormalities noted of the appendix, gallbladder, ovaries. On reevaluation she had increasing tenderness in the right lower quadrant. We discussed possible watching and waiting with return precautions for possible early appendicitis. We did decide to go ahead and get an ultrasound to rule out an ovarian torsion. There was blood flow bilaterally. She did have a slightly elevated white count but this could have been from her pain this morning. The ultrasound did show some thickening of the endometrium and some abnormal appearing structures including a possible endometrial polyp. On review of the patient's chart she did have an endometrial biopsy about a year ago due to heavy bleeding. She sees the [facility] office here at [facility]. I spoke with Dr. Otero who felt like she was safe to be discharged. They will follow her up in the office. On reevaluation of the patient's abdomen there is still no peritoneal signs, no guarding. She continues to have tenderness in the right lower quadrant and over the suprapubic area. She does understand about return precautions and that we may not have completely ruled out appendicitis. Lab Data 12/23/23 06:54 12/23/23 06:54 Labs/Radiology: Radiology Impressions Abdomen/Pelvis CT 12/23/23 08:36 IMPRESSION: 1. No acute findings. Please see above comments for additional details. Transvaginal US 12/23/23 10:42 IMPRESSION: 1. Thickened endometrium with an echogenic round foci measuring 1.1 centimeters with internal vascularity. Differential diagnosis includes retained products of conception versus endometrial polyp. 2. Hypoechoic region along the posterior endocervical canal. Further evaluation with pelvic MRI may be obtained. 3. Echogenic debris within the bladder. 4. Preserved bilateral intra-ovarian blood flow. Laboratory Results WBC 13.28 10^3/uL (3.29-11.43) H 12/23/23 06:54 RBC 4.86 10^6/uL (3.85-5.65) 12/23/23 06:54 Hgb 12.80 g/dL (11.27-16.99) 12/23/23 06:54 Hct 41.4 % (36-47) 12/23/23 06:54 MCV 85.2 fl (85-98) 12/23/23 06:54 MCH 26.3 pg (27-33) L 12/23/23 06:54 MCHC 30.9 g/dL (30-55) 12/23/23 06:54 RDW 14.3 % (12.1-15.1) 12/23/23 06:54 Plt Count 414 10^3/cmm (157-399) H 12/23/23 06:54 MPV 8.9 fL (7.4-10.4) 12/23/23 06:54 Neut % (Auto) 62.8 % 12/23/23 06:54 Lymph % (Auto) 27.0 % 12/23/23 06:54 [place] % (Auto) 4.1 % 12/23/23 06:54 Eos % (Auto) 5.5 % 12/23/23 06:54 Baso % (Auto) 0.4 % 12/23/23 06:54 Neut # (Auto) 8.34 10^3/uL (1.8-7.7) H 12/23/23 06:54 Lymph # (Auto) 3.6 10^3/uL (0.8-4.8) 12/23/23 06:54 [place] # (Auto) 0.6 10^3/uL (0.2-0.9) 12/23/23 06:54 Eos # (Auto) 0.7 10^3/uL (0.0-0.8) 12/23/23 06:54 Baso # (Auto) 0.1 10^3/uL (0.0-0.1) 12/23/23 06:54 Nucleated RBC % (auto) 0 % 12/23/23 06:54 Nucleated RBCs # 0.0 /100WBC 12/23/23 06:54 Sodium 135 mmol/L (136-145) L 12/23/23 06:54 Potassium 3.9 mmol/L (3.5-5.1) 12/23/23 06:54 Chloride 104 mmol/L (98-107) 12/23/23 06:54 Carbon Dioxide 20 mmol/L (22-29) L 12/23/23 06:54 Anion Gap 14.9 (5-19) 12/23/23 06:54 BUN 11 mg/dL (6-20) 12/23/23 06:54 Creatinine 0.6 mg/dL (0.5-0.9) 12/23/23 06:54 GFR Calculation 119.0 mL/min (90-130) 12/23/23 06:54 Glucose 209 mg/dL (65-115) H 12/23/23 06:54 Calculated Osmolality 286 mOsm/kg (285-295) 12/23/23 06:54 Calcium 9.2 mg/dL (8.5-10.5) 12/23/23 06:54 Total Bilirubin 0.2 mg/dL (0.15-1.2) 12/23/23 06:54 AST 19 U/L (0-32) 12/23/23 06:54 ALT 26 U/L (0-33) 12/23/23 06:54 Alkaline Phosphatase 92 U/L (35-105) 12/23/23 06:54 Total Protein 7.8 g/dL (6.6-8.7) 12/23/23 06:54 Albumin 4.2 g/dL (3.5-5.2) 12/23/23 06:54 Globulin 3.6 g/dL (1.3-4.6) 12/23/23 06:54 HCG, Qual Negative (Negative) 12/23/23 07:52 Urine Color Dark yellow (Yellow) A 12/23/23 07:52 Urine Appearance Clear (CLEAR) 12/23/23 07:52 Urine pH 5.0 (5-7) 12/23/23 07:52 Ur Specific [place] 1.028 (1.005-1.030) 12/23/23 07:52 Urine Protein 2+ (Negative) A 12/23/23 07:52 Urine Glucose (UA) Negative (Normal) 12/23/23 07:52 Urine Ketones Negative (Negative) 12/23/23 07:52 Urine Blood Negative (Negative) 12/23/23 07:52 Urine Nitrate Negative (Negative) 12/23/23 07:52 Urine Bilirubin Negative (Negative) 12/23/23 07:52 Urine Urobilinogen 1.0 mg/dL (Negative) 12/23/23 07:52 Ur Leukocyte Esterase Negative (Negative) 12/23/23 07:52 Urine RBC 6-10 /hpf (0-2) 12/23/23 07:52 Urine WBC 0-5 /hpf (0-5) 12/23/23 07:52 Ur Squamous Epith Cells 11-20 /hpf (0-5) 12/23/23 07:52 Amorphous Sediment 1+ /hpf 12/23/23 07:52 Urine Bacteria 1+ /hpf (NONE) H 12/23/23 07:52 Hyaline Casts 23.14 /lpf 12/23/23 07:52 Urine Mucus 3+ /hpf 12/23/23 07:52 All radiology interpretation(s) finalized by discharge Discharge Plan Discharge Patient Disposition: Home Clinical Impression: Abdominal pain, Type 2 diabetes mellitus with hyperglycemia, with long-term current use of insulin Condition: Stable Prescriptions: No Action diazepam 10 mg tablet 10 mg PO DAILY PRN (Reason: Anxiety) lamotrigine 200 mg tablet 200 mg PO BEDTIME levothyroxine 100 mcg capsule 100 mcg PO QAM albuterol sulfate 90 mcg/actuation HFA aerosol inhaler 2 puff inhalation Q6H PRN (Reason: Shortness Of Breath) baclofen 10 mg tablet 10 mg PO DAILY Rx Instructions: 1/2 tablet daily norethindrone (contraceptive) 0.35 mg tablet 0.35 mg PO DAILY Qty: 84 3RF insulin glargine [Lantus Solostar U-100 Insulin] 100 unit/mL (3 mL) insulin pen 25 unit SUBCUT BEDTIME (DME) HINGED KNEE BRACE See Rx Instructions .Route .MEDSUPPLY Qty: 1 0RF Rx Instructions: As directed cariprazine 1.5 mg capsule 1.5 mg PO DAILY nitrofurantoin macrocrystal 50 mg capsule 50 mg PO PRN ibuprofen 800 mg tablet 800 mg PO PRN nystatin 100,000 unit/gram ointment 1 applic topical BID PRN clindamycin phosphate [Clindagel] 1 % gel, once daily 1 applic topical DAILY PRN acetaminophen [Tylenol Extra Strength] 500 mg Tablet 1,000 mg PO PRN Ozempic 1 mg/dose (2 mg/1.5 mL) pen injector 1 mg SUBCUT Q7D Rx Instructions: on fridays prazosin 1 mg capsule 2 mg PO BEDTIME atorvastatin 20 mg tablet 20 mg PO DAILY Discharge Orders: Discharge ED (Routine); Ordered 12/23/23 Ordered By: Lashon Rousseau Referrals: Royal Hall, [employer] [facility] [Primary Care Provider] - Patient Instructions: Abdominal Pain (ED), Opioid Safety, Pain Management Activity Restrictions/Additional Instructions: Return to the ED if worsening pain, fever, or if pain is not gone in 12 hours. You can use tylenol as needed for pain. Coding Level of Care Code ED Dramatic Reader for Rivas Dumont
== END 2023-12-23 13:51 | disposition home or self-care (01) ==
PROVIDERS: Emergency Provider Emergency Medicine; PCP Nurse Practitioner
DX: E11.65 Type 2 diabetes mellitus with hyperglycemia (principal); Z79.4 Long term (current) use of insulin; Z79.85 Long-term (current) use of injectable non-insulin antidiabetic drugs; F17.290 Nicotine dependence, other tobacco product, uncomplicated; R10.31 Right lower quadrant pain; R10.32 Left lower quadrant pain
CPT/HCPCS: 36415; 74176; 76830; 80053; 81001; 81025; 85025; 96374; 96375; 96376; 99285; J2270; J2405

== ENCOUNTER → 2023-12-25 14:44 | Outpatient (BNVA) | payer MEDICARE, MEDICAID, SELFPAY | PROVIDERS: PCP Nurse Practitioner; Visit Provider Nurse Practitioner Women's Health | DX: Z32.00 Encounter for pregnancy test, result unknown (principal) | CPT/HCPCS: 81025 ==

== ENCOUNTER → 2024-01-01 09:46 | Outpatient (BNVA) | payer MEDICARE, MEDICAID, SELFPAY | PROVIDERS: PCP Nurse Practitioner; Visit Provider Nurse Practitioner | DX: E03.9 Hypothyroidism, unspecified (principal); E11.65 Type 2 diabetes mellitus with hyperglycemia; Z79.4 Long term (current) use of insulin | CPT/HCPCS: 80053; 80061; 82043; 83036; 84443 ==

== ENCOUNTER 2024-01-07 12:01 | Outpatient (CLI) | payer MEDICARE, MEDICAID, SELFPAY ==
--- NOTE | 2024-01-07 12:45 | USCV_ITS ---
Briseyda Casarez Age: 28 Gender: F : 1995 Exam Date: 01/07/2024 12:46 Ordering Phys: Adamaris Seth MD ([email or web address]) Technologist: CT Exam Location: [facility] – [place] Indication: BP: 130 / 90 HR: 73 Rhythm: Sinus Technical Quality: Adequate MEASUREMENTS (Male / Female) Normal Values 2D ECHO LVOT Diameter 2.0 cm LV Ejection Fraction MOD 4C 60.6 % LV Ejection Fraction MOD 2C 67.3 % LV Ejection Fraction 2C AL 66.8 % LA Diameter 3.2 cm RA Systolic Volume 4C AL 47.9 ml RA Systolic Volume 4C MOD 45.7 ml LA Sys Volume AL 40.4 cm cubed LA Sys Volume Index AL 21.5 cm cubed/m squared Aorta at Sinotubular Diameter 2.3 cm IVC Diameter 1.6 cm M-MODE LA Ao Ratio MM 1.5 AV Cusp Separation MM 2.2 cm DOPPLER AV Peak Velocity 115.0 cm/s LVOT Peak Velocity 106.0 cm/s AV Area Cont Eq vti 3.1 cm squared AV Area Cont Eq pk 2.9 cm squared MV Peak Velocity 99.0 cm/s MV Area PHT 3.7 cm squared Mitral E to A Ratio 1.7 TV Peak Velocity 160.0 cm/s TR Peak Velocity 195.0 cm/s TR Peak Gradient 15.2 mmHg TV Peak E Velocity 69.0 cm/s Right Atrial Pressure 3.0 mmHg Pulmonary Artery Systolic Pressu 18.2 mmHg PV Peak Velocity 104.0 cm/s FINDINGS Left Ventricle Normal left ventricular size, systolic function and wall thickness, with no regional wall motion abnormalities. Left ventricular ejection fraction is estimated at 60 %. Normal diastolic function. Right Ventricle The right ventricle is normal in size and function. Right Atrium The right atrium is normal in size. Left Atrium The left atrium is normal in size. Mitral Valve Mildly thickened mitral valve. No mitral valve stenosis. Trace mitral valve regurgitation. Aortic Valve Structurally normal aortic valve without significant sclerosis or stenosis. There is no aortic regurgitation. Tricuspid Valve Structurally normal tricuspid valve without significant stenosis or regurgitation. Pulmonary artery systolic pressure is normal. Pulmonic Valve Structurally normal pulmonic valve without significant stenosis. There is no pulmonic regurgitation. Pericardium Normal pericardium without effusion. Aorta Normal ascending aorta dimension. IVC The inferior vena cava appears normal. CONCLUSIONS Normal left ventricular size, systolic function and wall thickness, with no regional wall motion abnormalities. Left ventricular ejection fraction is estimated at 60 %. Normal diastolic function. There is a trace mitral valve regurgitation.. There is no pericardial effusion. Pulmonary artery systolic pressure is within normal limits. Right atrial pressure is around 5 mm of mercury. Adamarsi Seth MD (Electronically Signed) Final Date: 07 January 2024 14:31 S
== END 2024-01-07 12:02 | disposition home or self-care (01) ==
LOC: RAD 12:02
PROVIDERS: PCP Nurse Practitioner; Visit Provider Internal Medicine Cardiovascular Disease
DX: R07.9 Chest pain, unspecified (principal)
CPT/HCPCS: 93306

== ENCOUNTER → 2024-03-07 09:08 | Outpatient (BNVA) | payer MEDICARE, MEDICAID, SELFPAY | PROVIDERS: PCP Nurse Practitioner; Visit Provider Internal Medicine Cardiovascular Disease | DX: R00.0 Tachycardia, unspecified (principal); R07.9 Chest pain, unspecified; R00.2 Palpitations | CPT/HCPCS: 99213 ==

== ENCOUNTER → 2024-05-16 08:24 | Outpatient (BNVA) | payer MEDICARE, MEDICAID, SELFPAY | PROVIDERS: PCP Nurse Practitioner; Visit Provider Nurse Practitioner | DX: R20.2 Paresthesia of skin (principal); E55.9 Vitamin D deficiency, unspecified; L65.9 Nonscarring hair loss, unspecified; I95.1 Orthostatic hypotension; E03.2 Hypothyroidism due to medicaments and other exogenous substances; D50.9 Iron deficiency anemia, unspecified; F32.A Depression, unspecified; F41.9 Anxiety disorder, unspecified; E11.65 Type 2 diabetes mellitus with hyperglycemia; Z79.4 Long term (current) use of insulin | CPT/HCPCS: 80053; 82306; 82607; 83036; 83550; 83735; 84155; 84165; 84207; 84425; 84439; 84443; 85025; 85651; 86140; 86592 ==

== ENCOUNTER → 2024-05-20 08:31 | Outpatient (BNVA) | payer MEDICARE, MEDICAID, SELFPAY | PROVIDERS: PCP Nurse Practitioner; Visit Provider Nurse Practitioner | DX: E55.9 Vitamin D deficiency, unspecified (principal); L65.9 Nonscarring hair loss, unspecified; R20.2 Paresthesia of skin; I95.1 Orthostatic hypotension | CPT/HCPCS: 82570; 84156; 84166 ==

== ENCOUNTER → 2024-06-13 13:27 | Outpatient (BNVA) | payer MEDICARE, MEDICAID, SELFPAY | PROVIDERS: PCP Nurse Practitioner; Visit Provider Clinical Nurse Specialist Adult Health | DX: J02.9 Acute pharyngitis, unspecified (principal) | CPT/HCPCS: 87880 ==

== ENCOUNTER 2024-07-29 05:31 | Day surgery (SDC) | payer MEDICARE, MEDICAID, SELFPAY ==
--- NOTE | 2024-07-28 22:04 | W.PM.OPSFHP ---
Same Day Surgery H&P Indication for Procedure/HPI DATE OF PROCEDURE: July 28, 2024 CHIEF COMPLAINT/INDICATIONFOR SURGICAL PROCEDURE: abnormal uterine bleeding PREOP DIAGNOSIS: abnormal uterine bleeding PLANNED PROCEDURE: Operation Date: 07/29/24 07:00 Proposed Procedures p Hysteroscopy w/ Endometrial Sampling 96569, N93.9, N84.0(Not Applicable) - Kumar Otero MD s Poylpectomy(Not Applicable) - Kumar Oetro MD Medications/Allergies* Home Medications ?Medication ?Instructions ?Recorded ?Confirmed ?Type albuterol sulfate 90 mcg/actuation 2 puff inhalation Q6H PRN 08/09/20 07/23/24 History aerosol inhaler Shortness Of Breath levothyroxine 100 mcg capsule 100 mcg PO QAM 08/09/20 07/23/24 History acetaminophen 500 mg tablet 1,000 mg PO PRN 09/08/20 07/23/24 History (Tylenol Extra Strength) atorvastatin 20 mg tablet 20 mg PO DAILY 08/18/22 07/28/24 History baclofen 10 mg tablet 10 mg PO DAILY 11/24/22 07/23/24 History ibuprofen 800 mg tablet 800 mg PO PRN Menopausal Symptoms 09/24/23 07/23/24 History nitrofurantoin macrocrystal 50 mg 50 mg PO PRN 09/24/23 07/23/24 History capsule nystatin 100,000 unit/gram topical 1 applic topical BID PRN Abdominal 09/24/23 07/23/24 History ointment Pain ondansetron HCl 4 mg tablet 4 mg PO DAILY PRN Nausea 04/30/24 07/23/24 History ergocalciferol (vitamin D2) 1,250 50,000 unit PO .Q 7 days 07/09/24 07/23/24 History mcg (50,000 unit) capsule pantoprazole 40 mg tablet,delayed 40 mg PO QDAY PRN indigestion 07/09/24 07/23/24 History release thiamine HCl (vitamin B1) 50 mg 100 mg PO QDAY 07/09/24 07/23/24 History tablet semaglutide 2 mg/dose (8 mg/3 mL) 2 mg SUBCUT .weekly 07/23/24 07/23/24 History subcutaneous pen injector (Ozempic) Allergies/Adverse Reactions Allergy/AdvReac Type Severity Reaction Status Date / Time Sulfa (Sulfonamide Allergy RASH Verified 07/28/24 12:31 Antibiotics) Pertinent History/Comorbid Conditions* Medical History (Updated 06/13/24 @ 17:56 by Angel Barragan NP) Psychiatric care IBS (irritable bowel syndrome) Anxiety and depression Hypothyroidism Type 2 diabetes mellitus with hyperglycemia, with long-term current use of insulin RLS (restless legs syndrome) Asthma Surgical History (Updated 08/12/22 @ 23:07 by Leeann Swenson MD) Hx of tonsillectomy Family History (Updated 08/11/22 @ 10:47 by Genoveva Sheridan LPN) Denies family history of Colon cancer Ovarian cancer Diabetes Heart disease Hypercholesteremia Breast cancer Hypertension Uterine cancer Thyroid disease Stroke Social History Smoking and tobacco/nicotine status: current every day tobacco/nicotine user (thc vaping) e-cigarettes E-cig/vape details: THC vape Alcohol intake: never Substance/Drug Use: unknown Adopted: No Caregiver/support person: No Lives independently: Yes Household members: significant other Housing: House Marital status: Single Number of children: 0 service: No Current occupational status: disabled Pets and animals: Yes Pets & animals: dog(s) Do you think of yourself as: Straight/Heterosexual Current gender identity: Female Pertinent Exam Findings alert, oriented x 3, clear to auscultation bilaterally and regular rate & rhythm Pertinent Data Pelvic sono 12-23-23 thickened endometrium with 1.1 cm polyp Normal ovaries Recommendations Surgery/Procedure today Coding Level of Care Code Acute Code for Chg Fwd
[2024-07-29] VITALS (9 sets, daily range): BP systolic 109–132; BP diastolic 68–89; PULSE 67–99; RESP 12–23; TEMP 36.1–36.7; O2SAT 95–99; BMI 28.8
[2024-07-29] MEDS: sodium chloride 0.9% 1,000 ML 30 ML IV (06:06)
--- NOTE | 2024-07-29 06:07 | ANES.PREANE2 ---
Pre-Anesthetic Assessment Height/Weight: Height 5 ft 4 in Weight 168 lb Temp Pulse Resp BP Pulse Ox O2 Del Method 97.0 F L 99 18 132/89 98 Room Air 07/29/24 05:55 07/29/24 05:55 07/29/24 05:55 07/29/24 05:55 07/29/24 05:55 07/29/24 05:57 Preop Diagnosis: abnormal uterine bleeding Operation Date: 07/29/24 07:00 Proposed Procedures p Hysteroscopy w/ Endometrial Sampling 64264, N93.9, N84.0(Not Applicable) - Kumar Otero MD s Poylpectomy(Not Applicable) - Kumar Otero MD Was Beta Daya taken within 24 hours: N/A Was Clonidine taken within 24 hours: N/A Last intake: Intake Last Liquid Date 07/28/24 Last Liquid Time 18:00 Last Solid Date 07/28/24 Last Solid Time 18:00 Social No alcohol and No tobacco Smokes marijuana daily Exam alert, oriented x 3, clear to auscultation bilaterally and regular rate & rhythm Airway Submandibular: within normal limits Cervical ROM: within normal limits Mallampati: Class II Dentition: full Anesthetic Plan ASA status: 3 Anesthesia: General Other: No prior issues with anesthesia NPO since yesterday evening History of diabetes, on Ozempic. Last taken 2 weeks ago. Preop BS 196 Daily marijuana use Hypothyroidism on Synthroid History of bipolar disorder/depression Patient states that she was having occasional pains in her left shoulder last year. Cardiac workup performed. Echo showing EF of 60%. They told her it had nothing to do with her heart METs greater than 4 test neg Plan for general anesthesia Medications/Allergies Home Medications ?Medication ?Instructions ?Recorded ?Confirmed ?Last Taken ?Type albuterol sulfate 90 mcg/actuation 2 puff inhalation Q6H PRN 08/09/20 07/23/24 Unknown History aerosol inhaler Shortness Of Breath levothyroxine 100 mcg capsule 100 mcg PO QAM 08/09/20 07/23/24 07/27/24 21:00 History acetaminophen 500 mg tablet 1,000 mg PO PRN 09/08/20 07/23/24 07/28/22 History (Tylenol Extra Strength) atorvastatin 20 mg tablet 20 mg PO DAILY 08/18/22 07/28/24 08/21/22 History baclofen 10 mg tablet 10 mg PO DAILY 11/24/22 07/23/24 07/27/24 21:00 History HINGED KNEE BRACE #1 ea 12/28/22 07/23/24 Unknown Rx ibuprofen 800 mg tablet 800 mg PO PRN Menopausal Symptoms 09/24/23 07/23/24 Unknown History nitrofurantoin macrocrystal 50 mg 50 mg PO PRN 09/24/23 07/23/24 Unknown History capsule nystatin 100,000 unit/gram topical 1 applic topical BID PRN Abdominal 09/24/23 07/23/24 Unknown History ointment Pain cariprazine 1.5 mg capsule 1.5 mg PO .HS #30 caps 04/30/24 07/23/24 07/27/24 21:00 Rx lamotrigine 200 mg tablet 200 mg PO BEDTIME #30 tabs 04/30/24 07/23/24 07/27/24 21:00 Rx ondansetron HCl 4 mg tablet 4 mg PO DAILY PRN Nausea 04/30/24 07/23/24 Unknown History norethindrone (contraceptive) 0.35 See Rx Instructions .Route 06/02/24 07/23/24 07/27/24 21:00 Rx mg tablet .COMPLEX #84 tabs diclofenac sodium 1 % topical gel 2 g topical QID #100 grams 07/09/24 07/23/24 Unknown Rx (Arthritis Pain (diclofenac)) ergocalciferol (vitamin D2) 1,250 50,000 unit PO .Q 7 days 07/09/24 07/23/24 07/27/24 21:00 History mcg (50,000 unit) capsule pantoprazole 40 mg tablet,delayed 40 mg PO QDAY PRN indigestion 07/09/24 07/23/24 07/27/24 21:00 History release thiamine HCl (vitamin B1) 50 mg 100 mg PO QDAY 07/09/24 07/23/24 Unknown History tablet semaglutide 2 mg/dose (8 mg/3 mL) 2 mg SUBCUT .weekly 07/23/24 07/23/24 07/14/24 History subcutaneous pen injector (Ozempic) Allergies Allergy/AdvReac Type Severity Reaction Status Date / Time Sulfa (Sulfonamide Allergy RASH Verified 07/28/24 12:31 Antibiotics) Current Medications Generic Name Dose Route Start Last Admin Trade Name Aayush PRN Reason Stop Dose Admin Sodium Chloride 1,000 mls @ 30 mls/hr 07/29/24 06:00 07/29/24 06:06 Sodium Chloride 0.9% IV 07/30/24 05:59 30 mls/hr .Q24H PAIGE Administration PFSH Anesthesia Medical History Psychiatric care IBS (irritable bowel syndrome) Anxiety and depression Hypothyroidism Type 2 diabetes mellitus with hyperglycemia, with long-term current use of insulin RLS (restless legs syndrome) Asthma Surgical History Hx of tonsillectomy Family History Denies family history of Colon cancer Ovarian cancer Diabetes Heart disease Hypercholesteremia Breast cancer Hypertension Uterine cancer Thyroid disease Stroke Social History Smoking and tobacco/nicotine status: current every day tobacco/nicotine user (thc vaping) e-cigarettes E-cig/vape details: THC vape Alcohol intake: never Substance/Drug Use: unknown Adopted: No Caregiver/support person: No Lives independently: Yes Household members: significant other Housing: House Marital status: Single Number of children: 0 service: No Current occupational status: disabled Pets and animals: Yes Pets & animals: dog(s) Do you think of yourself as: Straight/Heterosexual Current gender identity: Female Data Anesthesia Cardiac Studies: Echocardiogram 01/07/24
[2024-07-29 06:12] LABS: OR HCG Qualitative Urine Negative (Negative)
[2024-07-29 06:34] LABS: Glucose Point of Care 194 mg/dL (70-110)
--- NOTE | 2024-07-29 06:46 | W.PM.OPSUD ---
Surgery/Procedure H&P Update DATE OF PROCEDURE: July 29, 2024 DATE H&P PERFORMED: 07/28/24 H&P UPDATE INFORMATION: I have reviewed H&P completed within last 30 days, I have examined patient prior to procedure and No changes to prior documentation PREOP DIAGNOSIS: abnormal uterine bleeding PLANNED PROCEDURE: Operation Date: 07/29/24 07:00 Proposed Procedures p Hysteroscopy w/ Endometrial Sampling 93981, N93.9, N84.0(Not Applicable) - Kumar Otero MD s Poylpectomy(Not Applicable) - Kumar Otero MD
[2024-07-29 07:58] LABS: Glucose Point of Care 166 mg/dL (70-110)
--- NOTE | 2024-07-29 08:35 | PM.OP ---
Operative Report Date of procedure: July 29, 2024 Pre-op diagnosis: abnormal uterine bleeding Post-op diagnosis: same Post-op findings: normal endometrial cavity No polyps / fibroids Minimal endometrial tissue Procedure done: hysteroscopy Curettage of uterus Implants: none Specimens removed/disposition: endometrial curettings Surgeon: Kumar Otero MD Anesthesia: MAC Estimated blood loss (mL): 0 Complications: none Findings: normal endometrial cavity No polyps / fibroids Minimal endometrial tissue Condition: stable Disposition: PACU Brief History: 28 y.o. with abnormal uterine bleeding Procedure: Informed consent signed. Patient was taken to the operating room. Anesthesia was induced. Patient was placed in dorsolithotomy position, prepped and draped for hysteroscopy. A bivalve speculum was placed in the vagina. The anterior lip of the cervix was grasped with a sharp-toothed tenaculum. The cervix was serially dilated with Hegar dilators. . A hysteroscope was placed into the endometrial cavity. The endometrial cavity was seen to be normal. There were no polyps or fibroids. There was a minimal amount of endometrial tissue. The hysteroscope was then removed. Endometrial curettage was done with a sharp curette. Endometrial tissue was sent to pathology. The sharp-toothed tenaculum was removed. There was no bleeding from the endometrial cavity or cervix. The patient was then placed supine and awakened and taken to the PACU. Postop condition: stable EBL: none Sponge and instruments counts were normal x 2 Complications: none
--- NOTE | 2024-07-29 08:38 | ANE.PACU2 ---
Inpatient post-anesthesia follow up: Airway intact: Yes Vital signs: Temperature 98.1 F Pulse Rate 74 Respiratory Rate 18 Blood Pressure 109/73 Pulse Oximetry 98 Oxygen Delivery Me thod Room Air Oxygen Flow Rate Fraction of Inspir ed Oxygen Hydration adequate: Yes Nausea and vomiting: No Pain level: 1 Mental status: Baseline
--- NOTE | 2024-07-29 08:38 | SUR.PHASEII ---
0830: Patient rated cramping pain at 6/10 when checked into phase 2. Patient said she did not need anything for pain and that she would take ibuprofen when she got home if she needed it.
== END 2024-07-29 08:38 | disposition home or self-care (01) ==
PROVIDERS: Student in an Organized Health Care Education/Training Program; PCP Nurse Practitioner; Visit Provider Obstetrics & Gynecology
PROC: 0UJD8ZZ Inspection of Uterus and Cervix, Via Natural or Artificial Opening Endoscopic (ICD-10-PCS; CPT 58555; principal; 2024-07-29 07:00)
DX: N93.9 Abnormal uterine and vaginal bleeding, unspecified (principal); F12.929 Cannabis use, unspecified with intoxication, unspecified; E03.9 Hypothyroidism, unspecified; Z86.59 Personal history of other mental and behavioral disorders; K21.9 Gastro-esophageal reflux disease without esophagitis; E11.9 Type 2 diabetes mellitus without complications; Z79.4 Long term (current) use of insulin; F17.290 Nicotine dependence, other tobacco product, uncomplicated
CPT/HCPCS: 58558; 36416; 81025; 82962; 88305; A4216; J1100; J2250; J2405; J2704; J3010; J3490; J7030; J9999

== ENCOUNTER 2024-08-14 12:21 | Emergency (ER) | payer MEDICARE, MEDICAID, SELFPAY ==
[2024-08-14] VITALS (8 sets, daily range): BP systolic 115–132; BP diastolic 74–97; PULSE 79–93; RESP 16–17; TEMP 36.6; O2SAT 97–100; BMI 28.8
[2024-08-14 12:53] LABS: Bilirubin Urine Negative (Negative); Blood Urine Negative (Negative); Glucose Urine UA Negative (Normal); Ketones Urine 1+ (Negative); Leukocyte Esterase Urine Negative (Negative); Nitrate Urine Negative (Negative); Protein Urine Negative (Negative); Specific Gravity, Urine 1.025 (1.005-1.030); Urine Appearance Clear (CLEAR); Urine Color Yellow (Yellow); pH Urine 5.5 (5-7)
[2024-08-14 12:59] LABS: Add Urine Microscopic? YES; Bacteria Urine 1+ /hpf; Hyaline Casts Urine 1.21 /lpf; RBC Urine 0-2 /hpf (0-2); WBC Urine 0-5 /hpf (0-5)
[2024-08-14 13:21] LABS: Basophils # 0.1 10^3/uL (0.0-0.1); Basophils % 0.6 %; Eosinophils # 0.2 10^3/uL (0.0-0.8); Eosinophils % 1.5 %; Hematocrit 43.2 % (36-47); Lymphocytes # 3.3 10^3/uL (0.8-4.8); Lymphocytes % 32.6 %; Mean Corpuscular HGB Conc 31.3 g/dL (30-55); Mean Corpuscular Hemoglobin 26.8 pg (27-33); Mean Corpuscular Volume 85.7 fl (85-98); Mean Platelet Volume 8.8 fL (7.4-10.4); Monocytes # 0.5 10^3/uL (0.2-0.9); Monocytes % 5.2 %; Neutrophils # 6.07 10^3/uL (1.8-7.7); Neutrophils % 59.8 %; Nucleated Red Blood Cells % 0 %; Platelet Count 482 10^3/cmm (157-399); Red Blood Count 5.04 10^6/uL (3.85-5.65); Red Cell Distribution Width 13.2 % (12.1-15.1); White Blood Count 10.15 10^3/uL (3.29-11.43)
[2024-08-14 13:37] LABS: Alanine Aminotransferase 18 U/L (0-33); Albumin Level 4.6 g/dL (3.5-5.2); Alkaline Phosphatase 81 U/L (35-105); Anion Gap 19.2 (5-19); Aspartate Amino Transferase 19 U/L (0-32); Blood Urea Nitrogen 11 mg/dL (6-20); Calcium 9.6 mg/dL (8.5-10.5); Carbon Dioxide 22 mmol/L (22-29); Chloride 102 mmol/L (98-107); Creatinine Clr Calc Pharmacy 138.2525; Globulin 3.6 g/dL (1.3-4.6); Glomerular Filtration Rate 118.2 mL/min (90-130); Glucose 98 mg/dL (65-115); Osmolality Calculated 287 mOsm/kg (285-295); Potassium 4.2 mmol/L (3.5-5.1); Sodium 139 mmol/L (136-145); Total Bilirubin 0.4 mg/dL (0.15-1.2); Total Protein 8.2 g/dL (6.6-8.7)
--- NOTE | 2024-08-14 13:37 | W.ED.FEMALGU ---
HPI - Female Genitourinary General: Chief complaint: Urogenital-Female Stated complaint: possible kidney stonesent by [facility] Time Seen by Provider: 08/14/24 13:23 History of Present Illness: 28-year-old female who presents to the emergency room with concern for kidney stones. She is been having flank pain. She was sent from clinic. She had blood in her urine she says. And then flank pain for the last day. Radiates into the left groin. No fevers. No nausea or vomiting. Related Data Home Medications ?Medication ?Instructions ?Recorded ?Confirmed albuterol sulfate 90 mcg/actuation 2 puff inhalation Q6H PRN 08/09/20 08/14/24 aerosol inhaler Shortness Of Breath levothyroxine 100 mcg capsule 100 mcg PO QAM 08/09/20 08/14/24 acetaminophen 500 mg tablet 1,000 mg PO PRN 09/08/20 08/14/24 (Tylenol Extra Strength) atorvastatin 20 mg tablet 20 mg PO DAILY 08/18/22 08/14/24 baclofen 10 mg tablet 10 mg PO DAILY 11/24/22 08/14/24 ibuprofen 800 mg tablet 800 mg PO PRN PRN Menopausal 09/24/23 08/14/24 Symptoms ergocalciferol (vitamin D2) 1,250 50,000 unit PO .Q 7 days 07/09/24 08/14/24 mcg (50,000 unit) capsule pantoprazole 40 mg tablet,delayed 40 mg PO QDAY PRN indigestion 07/09/24 08/14/24 release thiamine HCl (vitamin B1) 50 mg 100 mg PO QDAY 07/09/24 08/14/24 tablet semaglutide 2 mg/dose (8 mg/3 mL) 2 mg SUBCUT .weekly 07/23/24 08/14/24 subcutaneous pen injector (Ozempic) cariprazine 1.5 mg capsule 1.5 mg PO .HS 08/14/24 08/14/24 (Vraylar) linaclotide 72 mcg capsule 72 mcg PO QAM 08/14/24 08/14/24 (Linzess) nitrofurantoin macrocrystal 50 mg 50 mg PO DAILY 08/14/24 08/14/24 capsule nystatin 100,000 unit/gram topical See Rx Instructions .Route .COMPLEX 08/14/24 08/14/24 ointment vitamin B complex 1 cap PO DAILY 08/14/24 08/14/24 Previous Rx's ?Medication ?Instructions ?Recorded HINGED KNEE BRACE #1 ea 12/28/22 lamotrigine 200 mg tablet 200 mg PO BEDTIME #30 tabs 04/30/24 norethindrone (contraceptive) 0.35 See Rx Instructions .Route 06/02/24 mg tablet .COMPLEX #84 tabs diclofenac sodium 1 % topical gel 2 g topical QID #100 grams 07/09/24 (Arthritis Pain (diclofenac)) Allergies Allergy/AdvReac Type Severity Reaction Status Date / Time Sulfa (Sulfonamide Allergy RASH Verified 08/06/24 09:53 Antibiotics) Review of Systems Narrative: Constitutional symptoms: Negative except as documented in HPI. Skin symptoms: Negative except as documented in HPI. Eye symptoms: Negative except as documented in HPI. ENMT symptoms: Negative except as documented in HPI. Respiratory symptoms: Negative except as documented in HPI. Cardiovascular symptoms: Negative except as documented in HPI. Gastrointestinal symptoms: Negative except as documented in HPI. Genitourinary symptoms: Negative except as documented in HPI. Musculoskeletal symptoms: Negative except as documented in HPI. Neurologic symptoms: Negative except as documented in HPI. Psychiatric symptoms: Negative except as documented in HPI. Endocrine symptoms: Negative except as documented in HPI. PFSH ED PFSH: Medical History Psychiatric care IBS (irritable bowel syndrome) Anxiety and depression Hypothyroidism Type 2 diabetes mellitus with hyperglycemia, with long-term current use of insulin RLS (restless legs syndrome) Asthma Surgical History Hx of tonsillectomy Family History Denies family history of Colon cancer Ovarian cancer Diabetes Heart disease Hypercholesteremia Breast cancer Hypertension Uterine cancer Thyroid disease Stroke Social History Smoking and tobacco/nicotine status: current every day tobacco/nicotine user (thc vaping) e-cigarettes E-cig/vape details: THC vape Alcohol intake: never Substance/Drug Use: unknown Adopted: No Caregiver/support person: No Lives independently: Yes Household members: significant other Housing: House Marital status: Single Number of children: 0 service: No Current occupational status: disabled Pets and animals: Yes Pets & animals: dog(s) Do you think of yourself as: Straight/Heterosexual Current gender identity: Female Physical Exam Narrative: EXAM NARRATIVE: General: Alert, no acute distress. Skin: Warm, dry. Head: Normocephalic, atraumatic. Neck: Supple, trachea midline. Eye: Extraocular movements are intact. Ears, nose, mouth and throat: mucosa moist. Cardiovascular: Regular, Normal peripheral perfusion. Respiratory: Lungs are clear to auscultation, respirations are non-labored, breath sounds are equal, Symmetrical chest wall expansion. Gastrointestinal: Soft, Nontender, Non distended Musculoskeletal: Normal ROM, no deformity. Neurological: Alert and oriented, No focal neurological deficit observed. Psychiatric: Cooperative, appropriate mood & affect. Course Vital Signs: Vital signs: Vital Signs Temperature 97.8 F 08/14/24 12:28 Pulse Rate 80 08/14/24 16:23 Respiratory Rate 16 08/14/24 16:23 Blood Pressure 116/78 08/14/24 16:23 Pulse Oximetry 97 08/14/24 16:23 Oxygen Delivery Me thod Room Air 08/14/24 12:28 MDM - Female Medical Decision Making Medical decision making: Differential diagnosis including but not limited to and based on the above HPI, review of systems and physical exam: Ureterolithiasis. Urinary tract infection. Appendicitis. Cholecystis. Musculoskeletal / back pain. Pyelonephritis. Orders placed to evaluate differential diagnosis based on the above differential, HPI and physical exam Lab Review: Laboratory results were reviewed and interpreted by myself the emergency room physician. No leukocytosis. No anemia. No renal failure. No evidence of hematuria or urinary infection. CT of the abdomen pelvis: No kidney stones. Mesenteric adenitis. This was reviewed and interpreted by myself the emergency room physician. I also reviewed the radiology report. I reviewed the patient's medical record. Reexamination: Patient remained stable. No increased work of breathing. No altered mental status. No focal motor deficits. Assessment and plan: Mesenteric adenitis - Discharged home - Discussed plan with patient. Answered any questions. - Evaluation and treatment of this problem were appropriate in the emergency setting. Lab Data 08/14/24 13:10 08/14/24 13:10 Radiology Impressions Abdomen/Pelvis CT 08/14/24 13:41 IMPRESSION: 1. Mesenteric adenitis. 2. Hepatomegaly. Laboratory Results WBC 10.15 10^3/uL (3.29-11.43) 08/14/24 13:10 RBC 5.04 10^6/uL (3.85-5.65) 08/14/24 13:10 Hgb 13.50 g/dL (11.27-16.99) 08/14/24 13:10 Hct 43.2 % (36-47) 08/14/24 13:10 MCV 85.7 fl (85-98) 08/14/24 13:10 MCH 26.8 pg (27-33) L 08/14/24 13:10 MCHC 31.3 g/dL (30-55) 08/14/24 13:10 RDW 13.2 % (12.1-15.1) 08/14/24 13:10 Plt Count 482 10^3/cmm (157-399) H 08/14/24 13:10 MPV 8.8 fL (7.4-10.4) 08/14/24 13:10 Neut % (Auto) 59.8 % 08/14/24 13:10 Lymph % (Auto) 32.6 % 08/14/24 13:10 [place] % (Auto) 5.2 % 08/14/24 13:10 Eos % (Auto) 1.5 % 08/14/24 13:10 Baso % (Auto) 0.6 % 08/14/24 13:10 Neut # (Auto) 6.07 10^3/uL (1.8-7.7) 08/14/24 13:10 Lymph # (Auto) 3.3 10^3/uL (0.8-4.8) 08/14/24 13:10 [place] # (Auto) 0.5 10^3/uL (0.2-0.9) 08/14/24 13:10 Eos # (Auto) 0.2 10^3/uL (0.0-0.8) 08/14/24 13:10 Baso # (Auto) 0.1 10^3/uL (0.0-0.1) 08/14/24 13:10 Nucleated RBC % (auto) 0 % 08/14/24 13:10 Nucleated RBCs # 0.0 /100WBC 08/14/24 13:10 Sodium 139 mmol/L (136-145) 08/14/24 13:10 Potassium 4.2 mmol/L (3.5-5.1) 08/14/24 13:10 Chloride 102 mmol/L (98-107) 08/14/24 13:10 Carbon Dioxide 22 mmol/L (22-29) 08/14/24 13:10 Anion Gap 19.2 (5-19) H 08/14/24 13:10 BUN 11 mg/dL (6-20) 08/14/24 13:10 Creatinine 0.6 mg/dL (0.5-0.9) 08/14/24 13:10 GFR Calculation 118.2 mL/min (90-130) 08/14/24 13:10 Glucose 98 mg/dL (65-115) 08/14/24 13:10 Calculated Osmolality 287 mOsm/kg (285-295) 08/14/24 13:10 Calcium 9.6 mg/dL (8.5-10.5) 08/14/24 13:10 Total Bilirubin 0.4 mg/dL (0.15-1.2) 08/14/24 13:10 AST 19 U/L (0-32) 08/14/24 13:10 ALT 18 U/L (0-33) 08/14/24 13:10 Alkaline Phosphatase 81 U/L (35-105) 08/14/24 13:10 Total Protein 8.2 g/dL (6.6-8.7) 08/14/24 13:10 Albumin 4.6 g/dL (3.5-5.2) 08/14/24 13:10 Globulin 3.6 g/dL (1.3-4.6) 08/14/24 13:10 HCG, Qual Negative (Negative) 08/14/24 13:10 Urine Color Yellow (Yellow) 08/14/24 12:34 Urine Appearance Clear (CLEAR) 08/14/24 12:34 Urine pH 5.5 (5-7) 08/14/24 12:34 Ur Specific [place] 1.025 (1.005-1.030) 08/14/24 12:34 Urine Protein Negative (Negative) 08/14/24 12:34 Urine Glucose (UA) Negative (Normal) 08/14/24 12:34 Urine Ketones 1+ (Negative) H 08/14/24 12:34 Urine Blood Negative (Negative) 08/14/24 12:34 Urine Nitrate Negative (Negative) 08/14/24 12:34 Urine Bilirubin Negative (Negative) 08/14/24 12:34 Urine Urobilinogen 1.0 mg/dL (Negative) 08/14/24 12:34 Ur Leukocyte Esterase Negative (Negative) 08/14/24 12:34 Urine RBC 0-2 /hpf (0-2) 08/14/24 12:34 Urine WBC 0-5 /hpf (0-5) 08/14/24 12:34 Ur Squamous Epith Cells 6-10 /hpf (0-5) 08/14/24 12:34 Amorphous Sediment Not Reportable 08/14/24 12:34 Urine Bacteria 1+ /hpf (NONE) H 08/14/24 12:34 Hyaline Casts 1.21 /lpf 08/14/24 12:34 All radiology interpretation(s) finalized by discharge Discharge Plan Discharge Patient Disposition: Home Clinical Impression: Mesenteric adenitis Condition: Stable Prescriptions: No Action levothyroxine 100 mcg capsule 100 mcg PO QAM albuterol sulfate 90 mcg/actuation HFA aerosol inhaler 2 puff inhalation Q6H PRN (Reason: Shortness Of Breath) baclofen 10 mg tablet 10 mg PO DAILY Rx Instructions: 1/2 tablet daily lamotrigine 200 mg tablet 200 mg PO BEDTIME Qty: 30 2RF Ozempic 2 mg/dose (8 mg/3 mL) pen injector 2 mg SUBCUT .weekly (DME) HINGED KNEE BRACE See Rx Instructions .Route .MEDSUPPLY Qty: 1 0RF Rx Instructions: As directed ibuprofen 800 mg tablet 800 mg PO PRN PRN (Reason: Menopausal Symptoms) pantoprazole 40 mg tablet,delayed release (DR/EC) 40 mg PO QDAY PRN (Reason: indigestion) ergocalciferol (vitamin D2) 1,250 mcg (50,000 unit) capsule 50,000 unit PO .Q 7 days thiamine HCl (vitamin B1) 50 mg tablet 100 mg PO QDAY diclofenac sodium [Arthritis Pain (diclofenac)] 1 % gel 2 g topical QID Qty: 100 0RF Rx Instructions: apply to single elbow, wrist or hand; for hand includes palm/fingers/back of hand norethindrone (contraceptive) 0.35 mg tablet See Rx Instructions .ROUTE .COMPLEX Qty: 84 3RF Dose Instruction: TAKE ONE TABLET BY MOUTH DAILY Rx Instructions: TAKE ONE TABLET BY MOUTH DAILY acetaminophen [Tylenol Extra Strength] 500 mg Tablet 1,000 mg PO PRN atorvastatin 20 mg tablet 20 mg PO DAILY nitrofurantoin macrocrystal 50 mg capsule 50 mg PO DAILY nystatin 100,000 unit/gram ointment See Rx Instructions .ROUTE .COMPLEX Rx Instructions: MIX WITH THE TRIAMCINOLONE OINTMENT AND APPLY TO EXTERNAL VULVAR TISSUES TWICE DAILY Linzess 72 mcg capsule 72 mcg PO QAM Vraylar 1.5 mg capsule 1.5 mg PO .HS vitamin B complex [B Complex] Capsule 1 cap PO DAILY Discharge Orders: Discharge ED (Routine); Ordered 08/14/24 Ordered By: Litzy Arroyo Referrals: [facility], [facility] [Primary Care Provider, Family Practice] Discharge Diet: Usual diet Discharge Activity: Increase activity as tolerated Patient Instructions: Mesenteric Adenitis (ED), Opioid Safety, Pain Management Activity Restrictions/Additional Instructions: Thank you for choosing [facility] for your healthcare needs today. You have been screened and evaluated and felt safe for discharge. Health conditions do change or evolve sometimes and as such it is important that you follow up with your Primary Doctor to be re checked, 3-5 days is a general good time frame for follow up. You are always welcome to return to the ED for re assessment if your symptoms are worsening or you have new concerns Print Language: Kinyarwanda Coding Level of Care Code ED Intravenous Therapy Nurse for Rivas Dumont
--- NOTE | 2024-08-14 13:41 | CTR_ITS ---
PROCEDURE INFORMATION: Exam: CT Abdomen And Pelvis Without Contrast Exam date and time: 08/14/2024 2:21 PM Age: 28 years old Clinical indication: Abdominal pain; Flank; Left; Additional info: Flank pain TECHNIQUE: Imaging protocol: Computed tomography of the abdomen and pelvis without contrast. Radiation optimization: All CT scans at this facility use at least one of these dose optimization techniques: automated exposure control; mA and/or kV adjustment per patient size (includes targeted exams where dose is matched to clinical indication); or iterative reconstruction. COMPARISON: CT kidney stone [id number] 12/23/2023 8:44 AM RADIATION DOSE METRICS: Total DLP (mGy-cm): 366.17 FINDINGS: Limitations: Examination is limited for the evaluation of solid organs and vascular structures due to the lack of intravenous contrast. Lungs: Lung bases are unremarkable. Liver: The liver is enlarged measuring 18.6 cm in length. Gallbladder and biliary ducts: No intrahepatic or extrahepatic biliary ductal dilatation. The gallbladder is unremarkable with no radioopaque stone. Pancreas: Pancreas is unremarkable. No ductal dilation or peripancreatic inflammation. Spleen: The spleen is unremarkable. Adrenal glands: Adrenal glands are unremarkable. Kidneys and ureters: No hydronephrosis, hydroureter or nephrolithiasis. There is a stable 1.6 mm punctate calcification anterior to the proximal left ureter, this was noted on the previous study. Stomach and bowel: Stomach is not distended. Small and large bowel are normal in caliber without evidence of obstruction. Appendix: Appendix is unremarkable. Intraperitoneal space: No free intraperitoneal air. No significant fluid collection. Vasculature: There is no aortic aneurysm. Lymph nodes: Multiple prominent and enlarged nodes predominantly in the right lower quadrant and anterior to the psoas muscle, the largest measures 7.3 mm in short axis indicating and mesenteric adenitis. Urinary bladder: Bladder is distended with no focal wall thickening. Reproductive: Uterus is unremarkable for patient's age. No suspicious adnexal lesion seen. Bones/joints: No acute osseous abnormality. Soft tissues: There is a small fat containing umbilical hernia. CT/CT kidney stone [id number] IMPRESSION: 1. Mesenteric adenitis. 2. Hepatomegaly.
[2024-08-14 13:51] LABS: HCG, Serum Qual Negative (Negative)
== END 2024-08-14 16:27 | disposition home or self-care (01) ==
PROVIDERS: Family Medicine; Emergency Provider Emergency Medicine; PCP Nurse Practitioner
DX: I88.0 Nonspecific mesenteric lymphadenitis (principal); F17.290 Nicotine dependence, other tobacco product, uncomplicated; Z79.899 Other long term (current) drug therapy; Z79.85 Long-term (current) use of injectable non-insulin antidiabetic drugs; Z79.890 Hormone replacement therapy
CPT/HCPCS: 36415; 74176; 80053; 81001; 84703; 85025; 99284

== ENCOUNTER → 2024-09-05 12:15 | Outpatient (BNVA) | payer MEDICARE, MEDICAID, SELFPAY | PROVIDERS: PCP Nurse Practitioner; Visit Provider Clinical Nurse Specialist Adult Health | DX: M54.50 Low back pain, unspecified (principal) | CPT/HCPCS: 81000 ==

== ENCOUNTER 2024-09-06 08:37 | Emergency (ER) | payer MEDICARE, MEDICAID, SELFPAY ==
--- NOTE | 2024-09-06 08:50 | W.ED.ABDPA2 ---
HPI - Abdominal Pain General: Chief Complaint: Abdominal Pain Stated Complaint: abd pain Time Seen by Provider: 09/06/24 08:48 History of Present Illness: 28-year-old female presents to the emergency room with complaints of abdominal pain. She initially began having abdominal pain 2 days ago thought was a bladder infection started on Macrobid pain is moved from the right lower quadrant across towards the midline. Some nausea and vomiting no diarrhea no hematochezia or melena no hematemesis coffee-ground emesis. She has been told she has had a left nephrolithiasis but has not had any stones that have traversed to the bladder to this point. Associated Symptoms: Reports nausea and vomiting; Denies chills, dysuria and fever(s) Related Data Home Medications ?Medication ?Instructions ?Recorded ?Confirmed albuterol sulfate 90 mcg/actuation 2 puff inhalation Q6H PRN 08/09/20 09/06/24 aerosol inhaler Shortness Of Breath levothyroxine 100 mcg capsule 100 mcg PO QAM 08/09/20 09/06/24 acetaminophen 500 mg tablet 1,000 mg PO PRN 09/08/20 09/06/24 (Tylenol Extra Strength) atorvastatin 20 mg tablet 20 mg PO DAILY 08/18/22 09/06/24 ergocalciferol (vitamin D2) 1,250 50,000 unit PO .Q 7 days 07/09/24 09/06/24 mcg (50,000 unit) capsule pantoprazole 40 mg tablet,delayed 40 mg PO QDAY PRN indigestion 07/09/24 09/06/24 release thiamine HCl (vitamin B1) 50 mg 100 mg PO QDAY 07/09/24 09/06/24 tablet semaglutide 2 mg/dose (8 mg/3 mL) 2 mg SUBCUT .weekly 07/23/24 09/06/24 subcutaneous pen injector (Ozempic) cariprazine 1.5 mg capsule 1.5 mg PO .HS 08/14/24 09/06/24 (Vraylar) linaclotide 72 mcg capsule 72 mcg PO QAM 08/14/24 09/06/24 (Linzess) nystatin 100,000 unit/gram topical See Rx Instructions .Route .COMPLEX 08/14/24 09/06/24 ointment vitamin B complex 1 cap PO DAILY 08/14/24 09/06/24 baclofen 10 mg tablet 10 mg PO DAILY 09/05/24 09/06/24 Previous Rx's ?Medication ?Instructions ?Recorded HINGED KNEE BRACE #1 ea 12/28/22 lamotrigine 200 mg tablet 200 mg PO BEDTIME #30 tabs 04/30/24 norethindrone (contraceptive) 0.35 See Rx Instructions .Route 06/02/24 mg tablet .COMPLEX #84 tabs diclofenac sodium 1 % topical gel 2 g topical QID #100 grams 07/09/24 (Arthritis Pain (diclofenac)) ondansetron 8 mg disintegrating 8 mg PO Q8H PRN nausea and 08/22/24 tablet vomiting 5 days #15 tabs promethazine 25 mg tablet 25 mg PO Q4H PRN nausea and 08/22/24 vomiting #30 tabs baclofen 10 mg tablet 5 mg (1/2 x 10 mg) PO DAILY PRN 09/05/24 muscle spasm #20 tabs nitrofurantoin macrocrystal 50 mg 50 mg PO DAILY #30 caps 09/05/24 capsule ondansetron HCl 4 mg tablet 4 mg PO Q6H PRN nausea and 09/06/24 vomiting #20 tabs Allergies Allergy/AdvReac Type Severity Reaction Status Date / Time Sulfa (Sulfonamide Allergy RASH Verified 08/22/24 10:44 Antibiotics) Review of Systems Const: Denies: fever(s) or chills Card: Denies: chest pain Resp: Denies: dyspnea GI: Reports: abdominal pain, nausea and vomiting : Denies: dysuria, urinary frequency or urinary urgency Musc: Denies: neck pain or back pain Skin/Breast: Denies: rash PFS ED PFSH: Medical History Finger wound, simple, open Psychiatric care IBS (irritable bowel syndrome) Anxiety and depression Hypothyroidism Type 2 diabetes mellitus with hyperglycemia, with long-term current use of insulin RLS (restless legs syndrome) Asthma Surgical History Hx of tonsillectomy Family History Denies family history of Colon cancer Ovarian cancer Diabetes Heart disease Hypercholesteremia Breast cancer Hypertension Uterine cancer Thyroid disease Stroke Social History Smoking and tobacco/nicotine status: never used tobacco/nicotine Alcohol intake: never Substance/Drug Use: unknown Adopted: No Caregiver/support person: No Lives independently: Yes Household members: significant other Housing: House Marital status: Single Number of children: 0 service: No Current occupational status: disabled Pets and animals: Yes Pets & animals: dog(s) Do you think of yourself as: Straight/Heterosexual Current gender identity: Female Physical Exam Const: GENERAL APPEARANCE: cooperative ORIENTATION/CONSCIOUSNESS: Yes awake, Yes oriented to person, Yes oriented to place and Yes oriented to time HENMT: COMMON NORMALS: normocephalic, atraumatic and hearing grossly normal bilaterally HEAD & SCALP: normocephalic and atraumatic Resp: COMMON NORMALS: normal respiratory effort, No retractions, No use of accessory muscles and clear to auscultation bilaterally AUSCULTATION: clear to auscultation bilaterally Cardio: COMMON NORMALS: regular rate, regular rhythm and No murmurs present (Cardio) RATE: regular rate RHYTHM: regular rhythm GI: COMMON NORMALS: No hepatosplenomegaly present INSPECTION: No abdominal distension AUSCULTATION: Yes normoactive bowel sounds PALPATION: Yes Tenderness to palpation present (GI) (Right lower quadrant), No Guarding due to palpation present (GI) and Yes No hepatosplenomegaly present Extremity: COMMON NORMALS: normal to inspection, capillary refill normal, no clubbing, cyanosis or edema, no calf tenderness and no pedal edema Neuro: SENSORIUM/ORIENTATION: Yes oriented to person, Yes oriented to place and Yes oriented to time Skin: COMMON NORMALS: no rashes or lesions noted GENERAL SKIN EXAM: no rashes or lesions noted Course Vital Signs: Vital signs: Vital Signs Temperature 98.2 F 09/06/24 08:53 Pulse Rate 87 09/06/24 10:52 Respiratory Rate 18 09/06/24 08:53 Blood Pressure 124/84 09/06/24 10:52 Pulse Oximetry 98 09/06/24 10:52 Oxygen Delivery Me thod Room Air 09/06/24 08:53 MDM - Abdominal Pain Medical Decision Making Leukocytosis. CT shows mesenteric lymphadenitis reviewed with the patient clinical diet and advance as tolerated. Medical Records I reviewed the patient's medical records. Lab Data I reviewed the patient's lab results. 09/06/24 09:11 09/06/24 09:11 Labs/Radiology: Radiology Impressions Abdomen/Pelvis CT 09/06/24 09:17 IMPRESSION: 1. Appendix is normal and thin. 2. No evidence of appendicitis. Multiple small nonspecific prominent lymph nodes in the mesenteric fat of the right lower quadrant, likely representing mesenteric adenitis/enteritis. 3. Hepatomegaly. Laboratory Results WBC 14.02 10^3/uL (3.29-11.43) H 09/06/24 09:11 RBC 4.72 10^6/uL (3.85-5.65) 09/06/24 09:11 Hgb 12.80 g/dL (11.27-16.99) 09/06/24 09:11 Hct 39.9 % (36-47) 09/06/24 09:11 MCV 84.5 fl (85-98) L 09/06/24 09:11 MCH 27.1 pg (27-33) 09/06/24 09:11 MCHC 32.1 g/dL (30-55) 09/06/24 09:11 RDW 13.4 % (12.1-15.1) 09/06/24 09:11 Plt Count 439 10^3/cmm (157-399) H 09/06/24 09:11 MPV 8.9 fL (7.4-10.4) 09/06/24 09:11 Neut % (Auto) 70.9 % 09/06/24 09:11 Lymph % (Auto) 21.0 % 09/06/24 09:11 Liberty % (Auto) 4.9 % 09/06/24 09:11 Eos % (Auto) 2.4 % 09/06/24 09:11 Baso % (Auto) 0.4 % 09/06/24 09:11 Neut # (Auto) 9.94 10^3/uL (1.8-7.7) H 09/06/24 09:11 Lymph # (Auto) 3.0 10^3/uL (0.8-4.8) 09/06/24 09:11 Liberty # (Auto) 0.7 10^3/uL (0.2-0.9) 09/06/24 09:11 Eos # (Auto) 0.3 10^3/uL (0.0-0.8) 09/06/24 09:11 Baso # (Auto) 0.1 10^3/uL (0.0-0.1) 09/06/24 09:11 Nucleated RBC % (auto) 0 % 09/06/24 09:11 Nucleated RBCs # 0.0 /100WBC 09/06/24 09:11 Sodium 135 mmol/L (136-145) L 09/06/24 09:11 Potassium 4.0 mmol/L (3.5-5.1) 09/06/24 09:11 Chloride 99 mmol/L (98-107) 09/06/24 09:11 Carbon Dioxide 23 mmol/L (22-29) 09/06/24 09:11 Anion Gap 17.0 (5-19) 09/06/24 09:11 BUN 8 mg/dL (6-20) 09/06/24 09:11 Creatinine 0.5 mg/dL (0.5-0.9) 09/06/24 09:11 GFR Calculation 145.9 mL/min (90-130) H 09/06/24 09:11 Glucose 226 mg/dL (65-115) H 09/06/24 09:11 Calculated Osmolality 285 mOsm/kg (285-295) 09/06/24 09:11 Calcium 9.6 mg/dL (8.5-10.5) 09/06/24 09:11 Total Bilirubin 0.4 mg/dL (0.15-1.2) 09/06/24 09:11 AST 13 U/L (0-32) 09/06/24 09:11 ALT 13 U/L (0-33) 09/06/24 09:11 Alkaline Phosphatase 103 U/L (35-105) 09/06/24 09:11 Total Protein 8.5 g/dL (6.6-8.7) 09/06/24 09:11 Albumin 4.6 g/dL (3.5-5.2) 09/06/24 09:11 Globulin 3.9 g/dL (1.3-4.6) 09/06/24 09:11 Lipase 37 U/L (13-60) 09/06/24 09:11 HCG, Qual Negative (Negative) 09/06/24 09:11 All radiology interpretation(s) finalized by discharge Discharge Plan Discharge Patient Disposition: Home Clinical Impression: Acute mesenteric lymphadenitis Condition: Stable Prescriptions: New ondansetron HCl 4 mg tablet 4 mg PO Q6H PRN (Reason: nausea and vomiting) Qty: 20 0RF No Action levothyroxine 100 mcg capsule 100 mcg PO QAM albuterol sulfate 90 mcg/actuation HFA aerosol inhaler 2 puff inhalation Q6H PRN (Reason: Shortness Of Breath) baclofen 10 mg tablet 10 mg PO DAILY lamotrigine 200 mg tablet 200 mg PO BEDTIME Qty: 30 2RF Ozempic 2 mg/dose (8 mg/3 mL) pen injector 2 mg SUBCUT .weekly nitrofurantoin macrocrystal 50 mg capsule 50 mg PO DAILY Qty: 30 0RF baclofen 10 mg tablet 5 mg PO DAILY PRN (Reason: muscle spasm) Qty: 20 0RF Rx Instructions: temporary script due to temporary dose increase (DME) HINGED KNEE BRACE See Rx Instructions .Route .MEDSUPPLY Qty: 1 0RF Rx Instructions: As directed pantoprazole 40 mg tablet,delayed release (DR/EC) 40 mg PO QDAY PRN (Reason: indigestion) ergocalciferol (vitamin D2) 1,250 mcg (50,000 unit) capsule 50,000 unit PO .Q 7 days thiamine HCl (vitamin B1) 50 mg tablet 100 mg PO QDAY diclofenac sodium [Arthritis Pain (diclofenac)] 1 % gel 2 g topical QID Qty: 100 0RF Rx Instructions: apply to single elbow, wrist or hand; for hand includes palm/fingers/back of hand ondansetron 8 mg tablet,disintegrating 8 mg PO Q8H PRN (Reason: nausea and vomiting) 5 Days Qty: 15 0RF promethazine 25 mg tablet 25 mg PO Q4H PRN (Reason: nausea and vomiting) Qty: 30 0RF norethindrone (contraceptive) 0.35 mg tablet See Rx Instructions .ROUTE .COMPLEX Qty: 84 3RF Dose Instruction: TAKE ONE TABLET BY MOUTH DAILY Rx Instructions: TAKE ONE TABLET BY MOUTH BEDTIME acetaminophen [Tylenol Extra Strength] 500 mg Tablet 1,000 mg PO PRN atorvastatin 20 mg tablet 20 mg PO DAILY nystatin 100,000 unit/gram ointment See Rx Instructions .ROUTE .COMPLEX Rx Instructions: MIX WITH THE TRIAMCINOLONE OINTMENT AND APPLY TO EXTERNAL VULVAR TISSUES TWICE DAILY Linzess 72 mcg capsule 72 mcg PO QAM Vraylar 1.5 mg capsule 1.5 mg PO .HS vitamin B complex [B Complex] Capsule 1 cap PO DAILY Discharge Orders: Discharge ED (Routine); Ordered 09/06/24 Ordered By: Marlon Murillo Referrals: Royal [facility], [facility] [Primary Care Provider, Family Practice] Discharge Diet: Clear Liquid Discharge Activity: Resume usual activity Patient Instructions: Opioid Safety, Pain Management Activity Restrictions/Additional Instructions: [facility]. It is very important that you follow up as instructed or that you return to the Emergency Department should you have concerns or if your condition changes or worsens in any way. You are seen in the emergency room with complaints of abdominal pain you did have mild elevation of your white count CT shows what is called mesenteric lymphadenitis. Is a viral infection that involves the lymph nodes in the abdomen. This will frequently mimic conditions like appendicitis but on your CT the appendix looked completely normal. He may continue to experience some cramping and discomfort the next several days recommend 24 to 48 hours of clear liquid diet advance as tolerated we also gave you prescription for nausea medicines to use as needed Print Language: Mexican Coding Level of Care Code ED [employer] for [facility] Dumont
[2024-09-06 08:53] VITALS: BP 121/84; PULSE 100; RESP 18; TEMP 36.8; O2SAT 99; BMI 28.8
[2024-09-06 09:17] LABS: Basophils # 0.1 10^3/uL (0.0-0.1); Basophils % 0.4 %; Eosinophils # 0.3 10^3/uL (0.0-0.8); Eosinophils % 2.4 %; Hematocrit 39.9 % (36-47); Mean Corpuscular HGB Conc 32.1 g/dL (30-55); Mean Corpuscular Hemoglobin 27.1 pg (27-33); Mean Corpuscular Volume 84.5 fl (85-98); Mean Platelet Volume 8.9 fL (7.4-10.4); Monocytes # 0.7 10^3/uL (0.2-0.9); Monocytes % 4.9 %; Neutrophils # 9.94 10^3/uL (1.8-7.7); Neutrophils % 70.9 %; Nucleated Red Blood Cells % 0 %; Platelet Count 439 10^3/cmm (157-399); Red Blood Count 4.72 10^6/uL (3.85-5.65); Red Cell Distribution Width 13.4 % (12.1-15.1); White Blood Count 14.02 10^3/uL (3.29-11.43)
--- NOTE | 2024-09-06 09:17 | CTR_ITS ---
PROCEDURE INFORMATION: Exam: CT Abdomen And Pelvis With Contrast Exam date and time: 09/06/2024 9:53 AM Age: 28 years old Clinical indication: Abdominal pain; Additional info: Abd pain/right lower quadrant pain TECHNIQUE: Imaging protocol: Computed tomography of the abdomen and pelvis with contrast. Radiation optimization: All CT scans at this facility use at least one of these dose optimization techniques: automated exposure control; mA and/or kV adjustment per patient size (includes targeted exams where dose is matched to clinical indication); or iterative reconstruction. Contrast material: OMNI 350; Contrast volume: 100 ml; Contrast route: INTRAVENOUS (IV); COMPARISON: CT kidney stone [id number] 08/14/2024 2:21 PM RADIATION DOSE METRICS: Total DLP (mGy-cm): 574.85 FINDINGS: Liver: Hepatomegaly with the liver measuring 20.9 centimeters. No suspicious liver enhancing lesions. Gallbladder and biliary ducts: Normal. No calcified stones. No ductal dilation. Pancreas: Normal. No ductal dilation. Spleen: Normal. No splenomegaly. Adrenal glands: Normal. No mass. Kidneys and ureters: Normal. No hydronephrosis. Stomach and bowel: Unremarkable. No obstruction. No mucosal thickening. Appendix: Appendix is normal and thin. Intraperitoneal space: Unremarkable. No free air. No significant fluid collection. Vasculature: Unremarkable. No abdominal aortic aneurysm. Lymph nodes: There are multiple small nonspecific lymph nodes in the mesenteric fat of the right lower quadrant, but there are no nodes of pathologic dimensions present. Urinary bladder: Unremarkable as visualized. Reproductive: Unremarkable as visualized. Bones/joints: Unremarkable. No acute fracture. Soft tissues: Unremarkable. CT/CT abdomen pelvis w con* [id number] IMPRESSION: 1. Appendix is normal and thin. 2. No evidence of appendicitis. Multiple small nonspecific prominent lymph nodes in the mesenteric fat of the right lower quadrant, likely representing mesenteric adenitis/enteritis. 3. Hepatomegaly.
[2024-09-06] MEDS: ondansetron 2 mg/ML SDV 2 mL 4 MG IVP (09:19)
[2024-09-06] MEDS: sodium chloride 0.9% 1,000 ML 999 ML IV (09:20)
[2024-09-06 09:31] LABS: HCG, Serum Qual Negative (Negative)
[2024-09-06 09:36] LABS: Alanine Aminotransferase 13 U/L (0-33); Albumin Level 4.6 g/dL (3.5-5.2); Alkaline Phosphatase 103 U/L (35-105); Aspartate Amino Transferase 13 U/L (0-32); Blood Urea Nitrogen 8 mg/dL (6-20); Calcium 9.6 mg/dL (8.5-10.5); Carbon Dioxide 23 mmol/L (22-29); Chloride 99 mmol/L (98-107); Creatinine Clr Calc Pharmacy 165.9029; Globulin 3.9 g/dL (1.3-4.6); Glomerular Filtration Rate 145.9 mL/min (90-130); Glucose 226 mg/dL (65-115); Lipase 37 U/L (13-60); Osmolality Calculated 285 mOsm/kg (285-295); Sodium 135 mmol/L (136-145); Total Bilirubin 0.4 mg/dL (0.15-1.2); Total Protein 8.5 g/dL (6.6-8.7)
[2024-09-06] MEDS: iohexol 350 mg/mL 500 mL Btl (per mL) IV (09:56)
[2024-09-06 10:52] VITALS: BP 124/84; PULSE 87; O2SAT 98
== END 2024-09-06 10:53 | disposition home or self-care (01) ==
PROVIDERS: Emergency Provider Family Medicine; PCP Nurse Practitioner
DX: I88.0 Nonspecific mesenteric lymphadenitis (principal); E11.9 Type 2 diabetes mellitus without complications
CPT/HCPCS: 74177; 80053; 83690; 84703; 85025; 96374; 99285; J2405; J7030

== ENCOUNTER → 2024-09-18 09:08 | Outpatient (BNVA) | payer MEDICARE, MEDICAID, SELFPAY | PROVIDERS: PCP Nurse Practitioner; Visit Provider Nurse Practitioner | DX: E11.65 Type 2 diabetes mellitus with hyperglycemia (principal); E03.9 Hypothyroidism, unspecified; Z79.4 Long term (current) use of insulin | CPT/HCPCS: 80053; 80061; 83036; 84439; 84443 ==

== ENCOUNTER → 2024-09-23 08:05 | Outpatient (BNVA) | payer MEDICARE, MEDICAID, SELFPAY | PROVIDERS: PCP Nurse Practitioner; Visit Provider Nurse Practitioner | DX: E11.65 Type 2 diabetes mellitus with hyperglycemia (principal); Z79.4 Long term (current) use of insulin; E03.9 Hypothyroidism, unspecified | CPT/HCPCS: 82043 ==

== ENCOUNTER → 2024-10-08 15:14 | Outpatient (BNVA) | payer MEDICARE, MEDICAID, SELFPAY | PROVIDERS: PCP Internal Medicine Endocrinology, Diabetes & Metabolism; Visit Provider Nurse Practitioner Women's Health | DX: Z11.3 Encounter for screening for infections with a predominantly sexual mode of transmission (principal) | CPT/HCPCS: 87491; 87591; 87661 ==

== ENCOUNTER → 2025-03-23 10:20 | Outpatient (BNVA) | payer MEDICARE, MEDICAID, SELFPAY | PROVIDERS: PCP Family Medicine; Visit Provider Emergency Medicine | DX: R09.81 Nasal congestion (principal) | CPT/HCPCS: 87400; 87426 ==